=== PATIENT | female | born 1940 | race Caucasian/White ===

== ENCOUNTER → 2016-08-25 | Outpatient (CLI) | payer MEDICARE, BC ==
[2016-08-25 18:46] LABS: Basophils % (A) 0 %; CH 29.5; CHCM 32.5; Eosinophils # (A) 0.3 k/uL (0-0.7); Eosinophils % (A) 4 %; HCT 42.3 % (34.0-46.0); HDW 2.68; HGB 14.4 gm/dL (11.4-16.0); Luc # (Auto) 0.15; Luc % (Auto) 2; Lymphocytes # (A) 1.6 k/uL (1.0-4.8); Lymphocytes % (A) 21 %; MCV 91.3 fL (80.0-100.0); Mean Platelet Volume 10.8; Monocytes # (A) 0.5 k/uL (0-1.0); Monocytes % (A) 6 %; Neutrophils # (A) 5.2 k/uL (1.3-7.7); Neutrophils % (A) 67 %; RBC 4.64 m/uL (3.80-5.40); RDW 13.2 % (11.5-15.5); WBC 7.7 k/uL (3.8-10.6); WBC (Perox) 7.88
[2016-08-25 18:55] LABS: ALT 37 U/L (9-52); AST 20 U/L (14-36); Alkaline Phosphatase 72 U/L (38-126); Anion Gap 13 mmol/L; Blood Urea Nitrogen 21 mg/dL (7-17); Calcium 9.8 mg/dL (8.4-10.2); Carbon Dioxide 23 mmol/L (22-30); Chloride 109 mmol/L (98-107); Cholesterol 140 mg/dL (<200); Glucose 115 mg/dL (74-99); HDL Cholesterol 45 mg/dL (40-60); Non-African American GFR(MDRD) >60 (>60 ml/min/1.73 sqM); Sodium 145 mmol/L (137-145); Total Bilirubin 0.5 mg/dL (0.2-1.3); Total Protein 6.6 g/dL (6.3-8.2); Triglycerides 118 mg/dL (<150)
[2016-08-25 21:29] LABS: Hemoglobin A1C 6.8 % (4.2-6.1)
[2016-08-26 01:57] LABS: Urine Creatinine 96.3 mg/dL
== END ==
LOC: MMGSC 10:02
PROVIDERS: ATTEND Family Medicine
DX: E11.9 Type 2 diabetes mellitus without complications (principal); E78.5 Hyperlipidemia, unspecified; I10 Essential (primary) hypertension
CPT/HCPCS: 36415; 80053; 80061; 82043; 82570; 83036; 84439; 84443; 85025

== ENCOUNTER → 2016-11-13 | Outpatient (CLI) | payer MEDICARE, BC ==
--- NOTE | 2016-11-16 09:57 | MM ---
Reason for exam: screening (asymptomatic). Last mammogram was performed 1 year ago. History: Patient is postmenopausal. Took estrogen for 1 year beginning at age 38. Physical Findings: A clinical breast exam by your physician is recommended on an annual basis and results should be correlated with mammographic findings. MG 3D Screening Mammo W/Cad Bilateral CC and MLO view(s) were taken. Prior study comparison: November 04, 2015, bilateral MG screening mammo w CAD. November 02, 2014, bilateral MG screening mammo w CAD. There are scattered fibroglandular densities. No significant changes when compared with prior studies. ASSESSMENT: Benign, BI-RAD 2 RECOMMENDATION: Routine screening mammogram of both breasts in 1 year.
== END | disposition home or self-care (01) ==
LOC: RADMAMWWP 07:52
PROVIDERS: ATTEND Family Medicine
DX: Z12.31 Encounter for screening mammogram for malignant neoplasm of breast (principal)
CPT/HCPCS: 77063; G0202

== ENCOUNTER → 2017-11-12 | Outpatient (CLI) | payer MEDICARE, BC ==
--- NOTE | 2017-11-14 19:55 | MR ---
EXAMINATION TYPE: MR iac wo/w con DATE OF EXAM: 11/12/2017 COMPARISON: 07/09/2009 HISTORY: Unspecified hearing loss, unspecified ear TECHNIQUE: Multiplanar, multisequence images of the brain and brainstem is performed without and with IV contras t, utilizing 7 mL intravenous Gadavist . FINDINGS: Diffusion weighted images demonstrate no evidence of a recent infarct or other diffusion ab normality. There is abnormal signal seen throughout the subdural space bilaterally including along the cerebral convexities and tentorium. Measuring a maximal thickness of 3 to 4 mm. Findings are felt to be suspic ious for acute subdural hematoma. No midline shift or mass effect. Findings were immediately notified to Dr. Feliciano by telephone. There appears to be a stable hydrocephalus with artifact along the right cerebral convexity compatibl e with shunt catheter. Periventricular confluent and numerous areas of abnormal signal the white matter are nonspecific but most suggestive of remote ischemia. There is no evidence of acute ischemia. There is enhancement bryon g the dura which is felt to be secondary to the small bilateral subdural hematoma. Some of which exte nds along the 7th and 8th cranial nerve and may result in irritation of the nerve complex. No evidence of acoustic schwannoma or cerebellopontine angle mass. There is a partially empty sella t urcica. IMPRESSION: 1. Findings are suspicious for diffuse bilateral small subdural hematomas with no midline shift. Find ings immediately notified to the referring physician by telephone. Stat CT of the head is recommended . 2. No midline shift or mass effect. Stable hydrocephalus with suspected shunt catheter. The tip of th e catheter is not well seen which also could be evaluated with CT scan. 3. Nonspecific white matter changes most typical remote microvascular ischemia.
== END | disposition home or self-care (01) ==
LOC: RADMRIMAIN 16:53
PROVIDERS: ATTEND Otolaryngology
DX: G91.9 Hydrocephalus, unspecified (principal); I67.82 Cerebral ischemia; H91.91 Unspecified hearing loss, right ear
CPT/HCPCS: 70553; A9581

== ENCOUNTER 2017-11-14 22:36 | Emergency (ER) | payer MEDICARE, BC ==
[2017-11-14] MEDS ORDERED: SODIUM CHLORIDE 0.9% 1,000 ML IV STA (22:47)
--- NOTE | 2017-11-14 23:20 | CT ---
EXAMINATION TYPE: CT brain ophelia rodrigez con DATE OF EXAM: 11/14/2017 COMPARISON: None HISTORY: fall CT DLP: 1278.60 mGycm Automated exposure control for dose reduction was used. TECHNIQUE: CT scan of the head and cervical spine are performed without contrast. FINDINGS: There is right posterior occipital ventricular shunt catheter with the tip in the right l ateral ventricle. There is no significant hydrocephalus. There is no mass effect nor midline shift. T here is subtle intermediate density in the subdural space over the cerebral convexities consistent wi th mild subdural hygromas and old subdural hemorrhage. I see no sign of acute hemorrhage. The calvari um appears intact. There is cervical mild kyphotic curvature. There is degenerative disc space narrowing at C6-7 with sp urring of the endplates. Posterior elements are intact. I see no cervical spine fracture. The skull b ase appears intact. IMPRESSION: Intermediate density fluid around the cerebral hemispheres consistent with old subdural hemorrhage. T his appears similar to MR scan of 11/12/2017. No evidence of any new hemorrhage. No hydrocephalus. Spondylotic changes in the lower cervical spine and mild kyphotic curvature could relate to ligamento us injury uncertain age. Comparison with an old exam would be helpful. No fracture seen.
[2017-11-14 23:25] LABS: Basophils % (A) 1 %; Eosinophils # (A) 0.3 k/uL (0-0.7); Eosinophils % (A) 4 %; HCT 37.1 % (34.0-46.0); HGB 12.9 gm/dL (11.4-16.0); Lymphocytes # (A) 2.5 k/uL (1.0-4.8); Lymphocytes % (A) 32 %; MCHC 34.8 g/dL (31.0-37.0); MCV 86.3 fL (80.0-100.0); Mean Platelet Volume 8.2; Monocytes # (A) 0.4 k/uL (0-1.0); Monocytes % (A) 5 %; Neutrophils # (A) 4.3 k/uL (1.3-7.7); Neutrophils % (A) 55 %; Platelet Count 234 k/uL (150-450); RDW 13.1 % (11.5-15.5); WBC 7.7 k/uL (3.8-10.6)
--- NOTE | 2017-11-14 23:25 | ED ---
General Adult HPI - General Chief complaint: Head Injury Stated complaint: ear pain Time Seen by Provider: 11/14/17 22:46 Source: patient, RN notes reviewed, old records reviewed Mode of arrival: ambulatory Limitations: no limitations - History of Present Illness Initial comments: This is a 77-year-old female the ER for evaluation of weakness possible fall. Patient is presenting today for evaluation of lower extremity weakness also complaining of occasional headaches. A she was seen by ENT to outpatient MRI of her ER for evaluation, patient found incidental subdural hemorrhage with acute on chronic bleeding. Patient sent to ER today for evaluation of same. This MRI of her was done 2 days ago on Wednesday and she states today she woke up with some weakness in her lower extremities. She also complains of occasional mild headache MD Complaint: Weakness -: days(s) Location: lower extremity Radiation: non-radiation Severity scale (1-10): 3 Quality: aching Consistency: constant Improves with: none Worsens with: none Associated Symptoms: denies other symptoms Treatments Prior to Arrival: none - Related Data Allergies Allergy/AdvReac Type Severity Reaction Status Date / Time iodine Allergy Rash/Hives Verified 11/14/17 22:43 Sulfa (Sulfonamide Allergy Rash/Hives Verified 11/14/17 22:43 Antibiotics) Review of Systems ROS Statement: Those systems with pertinent positive or pertinent negative responses have been documented in the HPI. ROS Other: All systems not noted in ROS Statement are negative. Past Medical History Past Medical History: CVA/TIA, Diabetes Mellitus, Hyperlipidemia, Hypertension History of Any Multi-Drug Resistant Organisms: None Reported Past Surgical History: Appendectomy, Heart Catheterization, Hernia Repair, Hysterectomy Additional Past Surgical History / Comment(s): 2 shunts in the brain Past Psychological History: No Psychological Hx Reported Smoking Status: Never smoker Past Alcohol Use History: None Reported Past Drug Use History: None Reported General Exam Limitations: no limitations General appearance: alert, in no apparent distress Head exam: Present: atraumatic, normocephalic, normal inspection Eye exam: Present: normal appearance, PERRL, EOMI. Absent: scleral icterus, conjunctival injection, periorbital swelling ENT exam: Present: normal exam, mucous membranes moist Neck exam: Present: normal inspection. Absent: tenderness, meningismus, lymphadenopathy Respiratory exam: Present: normal lung sounds bilaterally. Absent: respiratory distress, wheezes, rales, rhonchi, stridor Cardiovascular Exam: Present: regular rate, normal rhythm, normal heart sounds. Absent: systolic murmur, diastolic murmur, rubs, gallop, clicks GI/Abdominal exam: Present: soft, normal bowel sounds. Absent: distended, tenderness, guarding, rebound, rigid Extremities exam: Present: normal inspection, full ROM, normal capillary refill. Absent: tenderness, pedal edema, joint swelling, calf tenderness Back exam: Present: normal inspection Neurological exam: Present: alert, oriented X3, CN II-XII intact Psychiatric exam: Present: normal affect, normal mood Skin exam: Present: warm, dry, intact, normal color. Absent: rash Course Vital Signs 11/14/17 22:37 Temperature 98.1 F Pulse Rate 70 Respiratory 18 Rate Blood Pressure 162/80 O2 Sat by Pulse 100 Oximetry - Reevaluation(s) Reevaluation #1: 11/15/17 00:07 Patient's medical record and MRI for outpatient is reviewed, we did speak with outpatient MRI radiologist who is at concern for bleeding as well as patient's ENT who ordered the outpatient MRI EKG Findings - EKG Comments: EKG Findings:: Vital male EKG shows normal sinus rhythm rate of 64, GA 154, QRS 86, QTc 427 Medical Decision Making - Medical Decision Making 77 female the ER for evaluation, patient does say for evaluation regarding dizziness and leg weakness. He was found have an outpatient MRI positive for acute on chronic subdural hematoma and hemorrhage with possible spots of active bleeding. Patient be transferred to [facility] for evaluation by neurosurgery - Lab Data Result diagrams: 11/14/17 23:15 11/14/17 23:15 Lab Results 11/14/17 11/14/17 11/14/17 Range/Units 23:12 23:15 23:15 WBC 7.7 (3.8-10.6) k/uL RBC 4.30 (3.80-5.40) m/uL Hgb 12.9 (11.4-16.0) gm/dL Hct 37.1 (34.0-46.0) % MCV 86.3 (80.0-100.0) fL MCH 30.0 (25.0-35.0) pg MCHC 34.8 (31.0-37.0) g/dL RDW 13.1 (11.5-15.5) % Plt Count 234 (150-450) k/uL Neutrophils % 55 % Lymphocytes % 32 % Monocytes % 5 % Eosinophils % 4 % Basophils % 1 % Neutrophils # 4.3 (1.3-7.7) k/uL Lymphocytes # 2.5 (1.0-4.8) k/uL Monocytes # 0.4 (0-1.0) k/uL Eosinophils # 0.3 (0-0.7) k/uL Basophils # 0.0 (0-0.2) k/uL PT (9.0-12.0) sec INR (<1.2) APTT (22.0-30.0) sec Sodium (137-145) mmol/L Potassium (3.5-5.1) mmol/L Chloride (98-107) mmol/L Carbon Dioxide (22-30) mmol/L Anion Gap mmol/L BUN (7-17) mg/dL Creatinine (0.52-1.04) mg/dL Est GFR (CKD-EPI)AfAm (>60 ml/min/1.73 sqM) Est GFR (CKD-EPI)NonAf (>60 ml/min/1.73 sqM) Glucose (74-99) mg/dL Calcium (8.4-10.2) mg/dL Phosphorus (2.5-4.5) mg/dL Magnesium (1.6-2.3) mg/dL Total Bilirubin (0.2-1.3) mg/dL AST (14-36) U/L ALT (9-52) U/L Alkaline Phosphatase (38-126) U/L Total Creatine Kinase 51 (30-135) U/L Total Protein (6.3-8.2) g/dL Albumin (3.5-5.0) g/dL Urine Color Yellow Urine Appearance Clear (Clear) Urine pH 6.0 (5.0-8.0) Ur Specific Dunlevy 1.016 (1.001-1.035) Urine Protein Negative (Negative) Urine Glucose (UA) Negative (Negative) Urine Ketones Negative (Negative) Urine Blood Negative (Negative) Urine Nitrite Negative (Negative) Urine Bilirubin Negative (Negative) Urine Urobilinogen <2.0 (<2.0) mg/dL Ur Leukocyte Esterase Large H (Negative) Urine RBC 4 (0-5) /hpf Urine WBC 26 H (0-5) /hpf Ur Squamous Epith Cells 1 (0-4) /hpf Urine Bacteria Rare H (None) /hpf Urine Mucus Rare H (None) /hpf 11/14/17 11/14/17 Range/Units 23:15 23:15 WBC (3.8-10.6) k/uL RBC (3.80-5.40) m/uL Hgb (11.4-16.0) gm/dL Hct (34.0-46.0) % MCV (80.0-100.0) fL MCH (25.0-35.0) pg MCHC (31.0-37.0) g/dL RDW (11.5-15.5) % Plt Count (150-450) k/uL Neutrophils % % Lymphocytes % % Monocytes % % Eosinophils % % Basophils % % Neutrophils # (1.3-7.7) k/uL Lymphocytes # (1.0-4.8) k/uL Monocytes # (0-1.0) k/uL Eosinophils # (0-0.7) k/uL Basophils # (0-0.2) k/uL PT 9.5 (9.0-12.0) sec INR 1.0 (<1.2) APTT 20.6 L (22.0-30.0) sec Sodium 141 (137-145) mmol/L Potassium 3.7 (3.5-5.1) mmol/L Chloride 108 H (98-107) mmol/L Carbon Dioxide 26 (22-30) mmol/L Anion Gap 7 mmol/L BUN 18 H (7-17) mg/dL Creatinine 0.73 (0.52-1.04) mg/dL Est GFR (CKD-EPI)AfAm >90 (>60 ml/min/1.73 sqM) Est GFR (CKD-EPI)NonAf 79 (>60 ml/min/1.73 sqM) Glucose 112 H (74-99) mg/dL Calcium 9.2 (8.4-10.2) mg/dL Phosphorus 3.7 (2.5-4.5) mg/dL Magnesium 1.5 L (1.6-2.3) mg/dL Total Bilirubin 0.3 (0.2-1.3) mg/dL AST 16 (14-36) U/L ALT 23 (9-52) U/L Alkaline Phosphatase 53 (38-126) U/L Total Creatine Kinase (30-135) U/L Total Protein 6.0 L (6.3-8.2) g/dL Albumin 3.6 (3.5-5.0) g/dL Urine Color Urine Appearance (Clear) Urine pH (5.0-8.0) Ur Specific Dunlevy (1.001-1.035) Urine Protein (Negative) Urine Glucose (UA) (Negative) Urine Ketones (Negative) Urine Blood (Negative) Urine Nitrite (Negative) Urine Bilirubin (Negative) Urine Urobilinogen (<2.0) mg/dL Ur Leukocyte Esterase (Negative) Urine RBC (0-5) /hpf Urine WBC (0-5) /hpf Ur Squamous Epith Cells (0-4) /hpf Urine Bacteria (None) /hpf Urine Mucus (None) /hpf - Radiology Data Radiology results: report reviewed (CT brain shows and C-spine shows acute on subacute subdural hematoma), image reviewed Disposition Clinical Impression: Closed head injury, Subdural hematoma Disposition: OTHER INSTITUTION NOT DEFINED Condition: Good Is patient prescribed a controlled substance at d/c from ED?: No Referrals: Rosalina Mcclellan MD [Primary Care Provider] - 1-2 days - Out of Hospital Transfer - Req. Specs Out of Hospital Transfer - Requested Specifics: Other Emergency Center ([facility])
[2017-11-14 23:38] LABS: Appearance,Urine Clear (Clear); Bacteria,Urine Rare /hpf; Bilirubin,Urine Negative (Negative); Blood,Urine Negative (Negative); Color,Urine Yellow; Glucose,Urine (UA) Negative (Negative); Ketones,Urine Negative (Negative); Leukocyte Esterase,Urine Large (Negative); Mucus,Urine Rare /hpf; Nitrite,Urine Negative (Negative); Protein,Urine Negative (Negative); RBC,Urine 4 /hpf (0-5); Specific Gravity,Urine 1.016 (1.001-1.035); Squamous Epithelial Cell,Urine 1 /hpf (0-4); Urobilinogen,Urine <2.0 mg/dL (<2.0); WBC,Urine 26 /hpf (0-5)
[2017-11-14 23:41] LABS: ALT 23 U/L (9-52); AST 16 U/L (14-36); Albumin 3.6 g/dL (3.5-5.0); Alkaline Phosphatase 53 U/L (38-126); Anion Gap 7 mmol/L; Blood Urea Nitrogen 18 mg/dL (7-17); Calcium 9.2 mg/dL (8.4-10.2); Carbon Dioxide 26 mmol/L (22-30); Chloride 108 mmol/L (98-107); Glucose 112 mg/dL (74-99); Magnesium 1.5 mg/dL (1.6-2.3); Phosphorus 3.7 mg/dL (2.5-4.5); Potassium 3.7 mmol/L (3.5-5.1); Sodium 141 mmol/L (137-145); Total Bilirubin 0.3 mg/dL (0.2-1.3)
[2017-11-14 23:44] LABS: Prothrombin Time 9.5 sec (9.0-12.0)
[2017-11-14] MEDS ORDERED: cefTRIAXone 2,000 MG in SODIUM CHLORIDE 0.9% 100 ML IVPB STA (23:44)
[2017-11-14 23:47] LABS: Partial Thromboplastin Time 20.6 sec (22.0-30.0)
[2017-11-14 23:54] LABS: Creatine Kinase 51 U/L (30-135)
[2017-11-15 00:07] LABS: Creatine Kinase MB 1.1 ng/mL (0.0-2.4); Troponin I <0.012 ng/mL (0.000-0.034)
[2017-11-15 01:02] VITALS: BP 134/67; PULSE 87; RESP 20; TEMP 97.6
== END 2017-11-15 01:03 | disposition short-term general hospital (02) ==
LOC: EC 22:36
DX: S06.5X9A Traumatic subdural hemorrhage with loss of consciousness of unspecified duration, initial encounter (principal); R29.898 Other symptoms and signs involving the musculoskeletal system; Z88.2 Allergy status to sulfonamides; Z91.048 Other nonmedicinal substance allergy status; Z86.73 Personal history of transient ischemic attack (TIA), and cerebral infarction without residual deficits; Z98.2 Presence of cerebrospinal fluid drainage device; W19.XXXA Unspecified fall, initial encounter
CPT/HCPCS: 99285; 96365; 96361; 36415 ×2; 93005; 80053; 82550; 82553; 83735; 84100; 84484; 85025; 85610; 85730; 81001; 87040; 87086; 72125; 70450; J0696

== ENCOUNTER 2017-11-16 12:50 | Emergency (ER) | payer MEDICARE, BC ==
[2017-11-16 12:57] VITALS: RESP 18
[2017-11-16] MEDS ORDERED: SODIUM CHLORIDE 0.9% 1,000 ML IV STA (13:11)
[2017-11-16] MEDS ORDERED: MECLIZINE 12.5 MG TAB PO STA (13:11)
[2017-11-16 13:16] LABS: Glucose,Whole Blood 80 mg/dL (75-99)
[2017-11-16 13:30] LABS: Basophils # (A) 0.1 k/uL (0-0.2); Basophils % (A) 1 %; Eosinophils # (A) 0.2 k/uL (0-0.7); Eosinophils % (A) 3 %; HCT 41.1 % (34.0-46.0); HGB 13.6 gm/dL (11.4-16.0); Lymphocytes # (A) 2.8 k/uL (1.0-4.8); Lymphocytes % (A) 33 %; MCHC 33.1 g/dL (31.0-37.0); MCV 87.5 fL (80.0-100.0); Mean Platelet Volume 8.1; Monocytes # (A) 0.3 k/uL (0-1.0); Monocytes % (A) 4 %; Neutrophils % (A) 58 %; Platelet Count 261 k/uL (150-450); RBC 4.69 m/uL (3.80-5.40); RDW 13.1 % (11.5-15.5); WBC 8.6 k/uL (3.8-10.6)
--- NOTE | 2017-11-16 13:41 | ED ---
Neuro HPI - General Chief Complaint: Neuro Symptoms/Deficit Stated Complaint: vomiting,weakness Time Seen by Provider: 11/16/17 13:00 Source: patient, RN notes reviewed Mode of arrival: ambulatory Limitations: no limitations - History of Present Illness Is the patient presenting with stroke symptoms?: No Initial Comments: This is a 76-year-old female who presents with complaints of dizziness and not feeling well. She has some nausea. This started about 1 hour prior to admission. She states she has dizziness increases with head and eye movement. She does have a history of vertigo this is worsened she's had before. Of note she was recently evaluated here and at [facility] for possible intercerebral bleed she states she believes she did not actually have a bleed. She denies any focal deficits. No fevers chills sweats - Related Data Home Medications: Home Medications Medication Instructions Recorded Confirmed Glimepiride [Amaryl] 2 mg PO AC-BRKFST 11/16/17 11/16/17 Lisinopril-Hctz 20-25 mg 1 tab PO HS 11/16/17 11/16/17 [Zestoretic 20-25] Rosuvastatin [Crestor] 10 mg PO HS 11/16/17 11/16/17 metFORMIN HCL [Glucophage] 1,000 mg PO BID 11/16/17 11/16/17 Previous Rx's Medication Instructions Recorded Meclizine [Antivert] 25 mg PO TID #20 tab 11/16/17 Allergies/Adverse Reactions: Allergies Allergy/AdvReac Type Severity Reaction Status Date / Time iodine Allergy Rash/Hives Verified 11/16/17 14:02 Sulfa (Sulfonamide Allergy Rash/Hives Verified 11/16/17 14:02 Antibiotics) Review of Systems ROS Statement: Those systems with pertinent positive or pertinent negative responses have been documented in the HPI. ROS Other: All systems not noted in ROS Statement are negative. General Exam - General Exam Comments Initial Comments: This is a well-developed well-nourished awake alert oriented 3 female Limitations: no limitations General appearance: alert, in no apparent distress Head exam: Present: atraumatic, normocephalic, normal inspection Eye exam: Present: normal appearance, PERRL, EOMI. Absent: scleral icterus, conjunctival injection, periorbital swelling ENT exam: Present: normal exam, mucous membranes moist Neck exam: Present: normal inspection, full ROM, other (No stridor JVD or bruits ). Absent: tenderness, meningismus, lymphadenopathy Respiratory exam: Present: normal lung sounds bilaterally. Absent: respiratory distress, wheezes, rales, rhonchi, stridor Cardiovascular Exam: Present: regular rate, normal rhythm, normal heart sounds. Absent: systolic murmur, diastolic murmur, rubs, gallop, clicks GI/Abdominal exam: Present: soft, normal bowel sounds. Absent: distended, tenderness, guarding, rebound, rigid Extremities exam: Present: normal inspection, full ROM, normal capillary refill. Absent: tenderness, pedal edema, joint swelling, calf tenderness Back exam: Present: normal inspection Neurological exam: Present: alert, oriented X3, CN II-XII intact Psychiatric exam: Present: normal affect, normal mood Skin exam: Present: warm, dry, intact, normal color. Absent: rash Stroke MDM - Lab Data Result diagrams: 11/16/17 13:15 11/16/17 13:15 Lab Results 11/16/17 11/16/17 11/16/17 Range/Units 13:15 13:15 13:15 WBC 8.6 (3.8-10.6) k/uL RBC 4.69 (3.80-5.40) m/uL Hgb 13.6 (11.4-16.0) gm/dL Hct 41.1 (34.0-46.0) % MCV 87.5 (80.0-100.0) fL MCH 29.0 (25.0-35.0) pg MCHC 33.1 (31.0-37.0) g/dL RDW 13.1 (11.5-15.5) % Plt Count 261 (150-450) k/uL Neutrophils % 58 % Lymphocytes % 33 % Monocytes % 4 % Eosinophils % 3 % Basophils % 1 % Neutrophils # 5.0 (1.3-7.7) k/uL Lymphocytes # 2.8 (1.0-4.8) k/uL Monocytes # 0.3 (0-1.0) k/uL Eosinophils # 0.2 (0-0.7) k/uL Basophils # 0.1 (0-0.2) k/uL PT (9.0-12.0) sec INR (<1.2) APTT (22.0-30.0) sec Sodium 142 (137-145) mmol/L Potassium 3.9 (3.5-5.1) mmol/L Chloride 106 (98-107) mmol/L Carbon Dioxide 23 (22-30) mmol/L Anion Gap 13 mmol/L BUN 17 (7-17) mg/dL Creatinine 0.74 (0.52-1.04) mg/dL Est GFR (CKD-EPI)AfAm 90 (>60 ml/min/1.73 sqM) Est GFR (CKD-EPI)NonAf 78 (>60 ml/min/1.73 sqM) Glucose 85 (74-99) mg/dL POC Glucose (mg/dL) 80 (75-99) mg/dL POC Glu Inspector [employer] ID Bushra Nolasco Calcium 9.6 (8.4-10.2) mg/dL Total Bilirubin 0.5 (0.2-1.3) mg/dL AST 20 (14-36) U/L ALT 23 (9-52) U/L Alkaline Phosphatase 66 (38-126) U/L Total Creatine Kinase (30-135) U/L CK-MB (CK-2) (0.0-2.4) ng/mL CK-MB (CK-2) Rel Index Troponin I (0.000-0.034) ng/mL Total Protein 6.8 (6.3-8.2) g/dL Albumin 4.1 (3.5-5.0) g/dL 11/16/17 11/16/17 Range/Units 13:15 13:15 WBC (3.8-10.6) k/uL RBC (3.80-5.40) m/uL Hgb (11.4-16.0) gm/dL Hct (34.0-46.0) % MCV (80.0-100.0) fL MCH (25.0-35.0) pg MCHC (31.0-37.0) g/dL RDW (11.5-15.5) % Plt Count (150-450) k/uL Neutrophils % % Lymphocytes % % Monocytes % % Eosinophils % % Basophils % % Neutrophils # (1.3-7.7) k/uL Lymphocytes # (1.0-4.8) k/uL Monocytes # (0-1.0) k/uL Eosinophils # (0-0.7) k/uL Basophils # (0-0.2) k/uL PT 9.4 (9.0-12.0) sec INR 0.9 (<1.2) APTT 20.2 L (22.0-30.0) sec Sodium (137-145) mmol/L Potassium (3.5-5.1) mmol/L Chloride (98-107) mmol/L Carbon Dioxide (22-30) mmol/L Anion Gap mmol/L BUN (7-17) mg/dL Creatinine (0.52-1.04) mg/dL Est GFR (CKD-EPI)AfAm (>60 ml/min/1.73 sqM) Est GFR (CKD-EPI)NonAf (>60 ml/min/1.73 sqM) Glucose (74-99) mg/dL POC Glucose (mg/dL) (75-99) mg/dL POC Glu Inspector Packer [employer] Container ID Calcium (8.4-10.2) mg/dL Total Bilirubin (0.2-1.3) mg/dL AST (14-36) U/L ALT (9-52) U/L Alkaline Phosphatase (38-126) U/L Total Creatine Kinase 56 (30-135) U/L CK-MB (CK-2) 1.1 (0.0-2.4) ng/mL CK-MB (CK-2) Rel Index 2.0 Troponin I <0.012 (0.000-0.034) ng/mL Total Protein (6.3-8.2) g/dL Albumin (3.5-5.0) g/dL - NIH Stroke Scale 1a. Level of Consciousness: (0) alert 1b. LOC Questions: (0) answers correctly 1c. LOC Commands: (0) performs tasks correctly 2. Best Gaze: (0) normal 3. Visual: (0) no visual loss 4. Facial Palsy: (0) normal symmetrical movement 5a. Motor Arm Left: (0) no drift 5b. Motor Arm Right: (0) no drift 6a. Motor Leg Left: (0) no drift 6b. Motor Leg Right: (0) no drift 7. Limb Ataxia: (0) absent 8. Sensory: (0) normal 9. Best Language: (0) no aphasia 10. Dysarthria: (0) normal 11. Extinction/Inattention: (0) no abnormality - Medical Decision Making I did review the imaging and discussed the findings with radiologist. No acute findings. Patient did get resolution of her symptoms for blood pressure is normalized she does have some intermittent weakness of her lower extremities this may be due to the increase her metformin she is advised to follow-up with regarding this. She has been on Antivert a past she does not have a prescription for at this time she'll get one. - EKG Data -: EKG Interpreted by Me EKG shows normal: sinus rhythm (Initial EKG shows sinus rhythm with some artifact rate was 76. Interval 128 QRS duration 86 QT since QTC 42/452) Past Medical History Past Medical History: CVA/TIA, Diabetes Mellitus, Hyperlipidemia, Hypertension History of Any Multi-Drug Resistant Organisms: None Reported Past Surgical History: Appendectomy, Heart Catheterization, Hernia Repair, Hysterectomy Additional Past Surgical History / Comment(s): 2 shunts in the brain Past Psychological History: No Psychological Hx Reported Smoking Status: Never smoker Past Alcohol Use History: None Reported Past Drug Use History: None Reported Course Vital Signs 11/16/17 11/16/17 11/16/17 12:51 12:57 13:00 Temperature 98 F Pulse Rate 72 66 78 Respiratory 18 18 18 Rate Blood Pressure 190/81 208/87 220/101 O2 Sat by Pulse 99 66 L 98 Oximetry 11/16/17 11/16/17 13:12 13:45 Temperature Pulse Rate 68 72 Respiratory 18 18 Rate Blood Pressure 189/94 178/81 O2 Sat by Pulse 98 99 Oximetry - Reevaluation(s) Reevaluation #1: 11/16/17 14:31 Repeat EKG shows normal sinus rhythm a 68. Interval 156 QRS duration 82 QT since QTC 460/[address]-T wave changes Disposition Clinical Impression: Benign positional vertigo, Hypertension Disposition: HOME SELF-CARE Condition: Good Instructions: Benign Paroxysmal Positional Vertigo (ED) Prescriptions: Meclizine [Antivert] 25 mg PO TID #20 tab Is patient prescribed a controlled substance at d/c from ED?: No Referrals: Rosalina Mcclellan MD [Primary Care Provider] - 1-2 days
[2017-11-16 13:47] LABS: INR 0.9 (<1.2); Prothrombin Time 9.4 sec (9.0-12.0)
--- NOTE | 2017-11-16 13:55 | CT ---
EXAMINATION TYPE: CT brain wo con for TPA DATE OF EXAM: 11/16/2017 COMPARISON: MRI 11/12/2017, CT 11/14/2017 HISTORY: Weakness and vomiting. CT DLP: 988.3 mGycm Automated exposure control for dose reduction was used. FINDINGS: There is abnormal attenuation within the CSF space bilaterally which corresponds the recent MRI abnor mality. There are areas of intermediate density suspicious for subacute bilateral subdural hematoma. Meningitis would be in the differential diagnosis. There is low-attenuation in the white matter which is nonspecific but stable and most typical remote microvascular ischemia. There is a TOE STAPLER shunt catheter. There is enlargement of the ventricular system compatible with hydrocep halus which is similar to the prior exam of 11/14/2017. Atherosclerotic change of the vasculature noted. IMPRESSION: 1. There again appears to be a thin rim (approximately 3 to 4 mm) of subdural collection along both c erebral convexities and cerebellar tentorium which corresponds to the MRI abnormality. This appears t o be of intermediate to low density suggestive of a probable subacute subdural hematoma. Hyperdensity along the right parietal lobe appears to be secondary to artifact related to the TOE STAPLER shunt catheter r ather than area of acute hemorrhage. Correlate clinically. No midline shift. Meningitis or metastatic disease would also be in the differential diagnosis given the enhancement pattern by MRI. Correlate clinically. 2. Stable TOE STAPLER shunt catheter with the evidence of persistent hydrocephalus unchanged from the recent C T scan. 3. Degenerative and nonspecific white matter changes most typical remote microvascular ischemia.
[2017-11-16 14:01] LABS: Partial Thromboplastin Time 20.2 sec (22.0-30.0)
[2017-11-16 14:02] LABS: Albumin 4.1 g/dL (3.5-5.0); Calcium 9.6 mg/dL (8.4-10.2); Creatine Kinase 56 U/L (30-135); Potassium 3.9 mmol/L (3.5-5.1); Total Bilirubin 0.5 mg/dL (0.2-1.3); Total Protein 6.8 g/dL (6.3-8.2)
[2017-11-16 14:14] LABS: Creatine Kinase MB 1.1 ng/mL (0.0-2.4); Troponin I <0.012 ng/mL (0.000-0.034)
--- NOTE | 2017-11-16 15:32 | XR ---
EXAMINATION TYPE: XR chest 2V DATE OF EXAM: 11/16/2017 COMPARISON: Prior chest x-ray unavailable HISTORY: Altered mental status TECHNIQUE: Frontal and lateral views of the chest are obtained. FINDINGS: There is no pleural effusion or pneumothorax seen. The cardiac silhouette size is within normal limits. Patchy density likely represent subsegmental atelectasis at the costophrenic angles. There is eventration of the right hemidiaphragm. Technique is apical lordotic. The osseous structures are intact. Suspect ventricular peritoneal shunt tubing extending along the right neck the abdomen, correlate. IMPRESSION: Probable basilar atelectasis, follow-up as indicated.
[2017-11-16 16:07] VITALS: BP 147/68; PULSE 66; TEMP 97.5
== END 2017-11-16 16:07 | disposition home or self-care (01) ==
LOC: EC 12:50
DX: H81.10 Benign paroxysmal vertigo, unspecified ear (principal); R29.898 Other symptoms and signs involving the musculoskeletal system; I10 Essential (primary) hypertension; E11.9 Type 2 diabetes mellitus without complications; Z79.84 Long term (current) use of oral hypoglycemic drugs; Z79.899 Other long term (current) drug therapy; Z88.2 Allergy status to sulfonamides; Z91.048 Other nonmedicinal substance allergy status; Z86.73 Personal history of transient ischemic attack (TIA), and cerebral infarction without residual deficits; Z95.818 Presence of other cardiac implants and grafts; Z98.2 Presence of cerebrospinal fluid drainage device
CPT/HCPCS: 36415; 70450; 71046; 80053; 82550; 82553; 84484; 85025; 85610; 85730; 93005; 96360; 96361; 99284

== ENCOUNTER 2017-11-22 15:16 | Emergency (ER) | payer MEDICARE, BC ==
[2017-11-22 16:15] VITALS: RESP 20
[2017-11-22] MEDS ORDERED: SODIUM CHLORIDE 0.9% 1,000 ML IV STA (17:16)
--- NOTE | 2017-11-22 17:19 | ED ---
General Adult HPI - General Chief complaint: Dizziness Stated complaint: dizziness, nausea, vomiting Time Seen by Provider: 11/22/17 17:07 Source: patient, RN notes reviewed, old records reviewed Mode of arrival: wheelchair Limitations: no limitations - History of Present Illness Initial comments: Patient 77-year-old female presents emergency room today with a chief complaint of dizziness. She admits to a history of vertigo. She states this is similar to vertigo that she's had in the past. She states it is better though was this morning. She did take her meclizine. Patient admits that she was seen in the hospital week ago diagnosed with a subdural hematoma. She states she was transferred to [facility]. She states the neurologist told her that there was no blood and she was discharged. Patient states there is no headache. She states that she does feel somewhat generalized weakness to her legs. She states it feels like her knees give out. She denies any other complaints. Patient denies any recent fever, chills, shortness of breath, chest pain, back pain, abdominal pain, nausea or vomiting, numbness or tingling, headaches or visual changes, or any other complaints. - Related Data Home Medications Medication Instructions Recorded Confirmed Glimepiride [Amaryl] 2 mg PO AC-SUPPER 11/16/17 11/22/17 Lisinopril-Hctz 20-25 mg 1 tab PO HS 11/16/17 11/22/17 [Zestoretic 20-25] Rosuvastatin [Crestor] 10 mg PO HS 11/16/17 11/22/17 metFORMIN HCL [Glucophage] 1,000 mg PO DAILY 11/16/17 11/22/17 Aspirin [Adult Low Dose Aspirin EC] 81 mg PO DAILY 11/22/17 11/22/17 [place]-3 Fatty Acids/Fish Oil [Fish 1 cap PO DAILY 11/22/17 11/22/17 Oil 1,000 mg Softgel] metFORMIN HCL [Glucophage] 500 mg PO HS 11/22/17 11/22/17 Allergies Allergy/AdvReac Type Severity Reaction Status Date / Time iodine Allergy Rash/Hives Verified 11/22/17 18:42 Sulfa (Sulfonamide Allergy Rash/Hives Verified 11/22/17 18:42 Antibiotics) Review of Systems ROS Statement: Those systems with pertinent positive or pertinent negative responses have been documented in the HPI. ROS Other: All systems not noted in ROS Statement are negative. 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 Eye: Pupils are equal, round and reactive to light. Extra-ocular movements are intact. No nystagmus. There is normal conjunctiva bilaterally. No signs of icterus. Ears, nose, mouth and throat: There are moist mucous membranes and no oral lesions. Neck: The neck is supple, there is no tenderness or JVD. Cardiovascular: There is a regular rate and rhythm. No murmur, rub or gallop is appreciated. Respiratory: Lungs are clear to auscultation, respirations are non-labored, breath sounds are equal. No wheezes, stridor, rales, or rhonchi. Gastrointestinal: Soft, non-distended, non-tender abdomen without masses or organomegaly noted. There is no rebound or guarding present. No CVA tenderness. Bowel sounds are unremarkable. Musculoskeletal: Normal ROM, no tenderness. Sensation intact. Strength 5/5. Pulses equal bilaterally 2+. Neurological: A&O x 3. CN II-XII intact, There are no obvious motor or sensory deficits. Coordination appears grossly intact. Speech is normal. Skin: Skin is warm and dry and no rashes or lesions are noted. Psychiatric: Cooperative, appropriate mood & affect, normal judgment. Limitations: no limitations Course Vital Signs 11/22/17 16:12 Temperature 98.0 F Pulse Rate 68 Respiratory 20 Rate Blood Pressure 137/71 O2 Sat by Pulse 98 Oximetry EKG Findings - EKG Comments: EKG Findings:: EKG performed at 1750: Shows normal sinus rhythm at 62 bpm. WV interval 142. QRS 86 QTc/QTc 440/446. Medical Decision Making - Medical Decision Making Patient's CT of the head is negative for any acute abnormality. Results were discussed with the patient. Patient's labs reviewed unremarkable. Case discussed in detail with attending physician Dr. Castillo. At this time patient is doing well. Has been ambulatory here in the emergency room will be discharged home advised continue meclizine. Advised follow-up with her family physician also her neurologist. She also has an appointment with ENT this coming Wednesday. Advised to return to the emergency room if any symptoms increase worsen or for any other concerns. - Lab Data Result diagrams: 11/22/17 18:00 11/22/17 18:00 Lab Results 11/22/17 11/22/17 11/22/17 Range/Units 17:48 18:00 18:00 WBC 9.2 (3.8-10.6) k/uL RBC 4.49 (3.80-5.40) m/uL Hgb 13.4 (11.4-16.0) gm/dL Hct 38.7 (34.0-46.0) % MCV 86.1 (80.0-100.0) fL MCH 29.8 (25.0-35.0) pg MCHC 34.6 (31.0-37.0) g/dL RDW 12.6 (11.5-15.5) % Plt Count 241 (150-450) k/uL Neutrophils % 74 % Lymphocytes % 18 % Monocytes % 3 % Eosinophils % 2 % Basophils % 1 % Neutrophils # 6.8 (1.3-7.7) k/uL Lymphocytes # 1.7 (1.0-4.8) k/uL Monocytes # 0.3 (0-1.0) k/uL Eosinophils # 0.2 (0-0.7) k/uL Basophils # 0.1 (0-0.2) k/uL Sodium (137-145) mmol/L Potassium (3.5-5.1) mmol/L Chloride (98-107) mmol/L Carbon Dioxide (22-30) mmol/L Anion Gap mmol/L BUN (7-17) mg/dL Creatinine (0.52-1.04) mg/dL Est GFR (CKD-EPI)AfAm (>60 ml/min/1.73 sqM) Est GFR (CKD-EPI)NonAf (>60 ml/min/1.73 sqM) Glucose (74-99) mg/dL Calcium (8.4-10.2) mg/dL Total Bilirubin (0.2-1.3) mg/dL AST (14-36) U/L ALT (9-52) U/L Alkaline Phosphatase (38-126) U/L Total Creatine Kinase 47 (30-135) U/L CK-MB (CK-2) 0.7 (0.0-2.4) ng/mL CK-MB (CK-2) Rel Index 1.5 Troponin I <0.012 (0.000-0.034) ng/mL Total Protein (6.3-8.2) g/dL Albumin (3.5-5.0) g/dL Urine Color Yellow Urine Appearance Clear (Clear) Urine pH 6.0 (5.0-8.0) Ur Specific [place] 1.016 (1.001-1.035) Urine Protein Negative (Negative) Urine Glucose (UA) Negative (Negative) Urine Ketones Negative (Negative) Urine Blood Negative (Negative) Urine Nitrite Negative (Negative) Urine Bilirubin Negative (Negative) Urine Urobilinogen <2.0 (<2.0) mg/dL Ur Leukocyte Esterase Trace H (Negative) Urine RBC 1 (0-5) /hpf Urine WBC 2 (0-5) /hpf Ur Squamous Epith Cells <1 (0-4) /hpf Urine Mucus Rare H (None) /hpf 11/22/17 Range/Units 18:00 WBC (3.8-10.6) k/uL RBC (3.80-5.40) m/uL Hgb (11.4-16.0) gm/dL Hct (34.0-46.0) % MCV (80.0-100.0) fL MCH (25.0-35.0) pg MCHC (31.0-37.0) g/dL RDW (11.5-15.5) % Plt Count (150-450) k/uL Neutrophils % % Lymphocytes % % Monocytes % % Eosinophils % % Basophils % % Neutrophils # (1.3-7.7) k/uL Lymphocytes # (1.0-4.8) k/uL Monocytes # (0-1.0) k/uL Eosinophils # (0-0.7) k/uL Basophils # (0-0.2) k/uL Sodium 141 (137-145) mmol/L Potassium 3.8 (3.5-5.1) mmol/L Chloride 104 (98-107) mmol/L Carbon Dioxide 27 (22-30) mmol/L Anion Gap 10 mmol/L BUN 19 H (7-17) mg/dL Creatinine 0.73 (0.52-1.04) mg/dL Est GFR (CKD-EPI)AfAm >90 (>60 ml/min/1.73 sqM) Est GFR (CKD-EPI)NonAf 79 (>60 ml/min/1.73 sqM) Glucose 111 H (74-99) mg/dL Calcium 9.4 (8.4-10.2) mg/dL Total Bilirubin 0.6 (0.2-1.3) mg/dL AST 26 (14-36) U/L ALT 27 (9-52) U/L Alkaline Phosphatase 64 (38-126) U/L Total Creatine Kinase (30-135) U/L CK-MB (CK-2) (0.0-2.4) ng/mL CK-MB (CK-2) Rel Index Troponin I (0.000-0.034) ng/mL Total Protein 6.4 (6.3-8.2) g/dL Albumin 3.8 (3.5-5.0) g/dL Urine Color Urine Appearance (Clear) Urine pH (5.0-8.0) Ur Specific [place] (1.001-1.035) Urine Protein (Negative) Urine Glucose (UA) (Negative) Urine Ketones (Negative) Urine Blood (Negative) Urine Nitrite (Negative) Urine Bilirubin (Negative) Urine Urobilinogen (<2.0) mg/dL Ur Leukocyte Esterase (Negative) Urine RBC (0-5) /hpf Urine WBC (0-5) /hpf Ur Squamous Epith Cells (0-4) /hpf Urine Mucus (None) /hpf Disposition Clinical Impression: Vertigo Disposition: HOME SELF-CARE Condition: Good Instructions: Dizziness (ED) Additional Instructions: Please use medication as discussed. Please follow-up with ENT/neurologist/ family doctor in the next 2 days of symptoms have not improved. Please return to emergency room if the symptoms increase or worsen or for any other concerns. Is patient prescribed a controlled substance at d/c from ED?: No Referrals: Rosalina Mcclellan MD [Primary Care Provider] - 1-2 days Time of Disposition: 20:02
[2017-11-22 18:12] LABS: Appearance,Urine Clear (Clear); Bilirubin,Urine Negative (Negative); Blood,Urine Negative (Negative); Color,Urine Yellow; Glucose,Urine (UA) Negative (Negative); Ketones,Urine Negative (Negative); Leukocyte Esterase,Urine Trace (Negative); Mucus,Urine Rare /hpf; Nitrite,Urine Negative (Negative); Protein,Urine Negative (Negative); RBC,Urine 1 /hpf (0-5); Specific Gravity,Urine 1.016 (1.001-1.035); Squamous Epithelial Cell,Urine <1 /hpf (0-4); Urobilinogen,Urine <2.0 mg/dL (<2.0)
[2017-11-22 18:23] LABS: Basophils # (A) 0.1 k/uL (0-0.2); Basophils % (A) 1 %; Eosinophils # (A) 0.2 k/uL (0-0.7); Eosinophils % (A) 2 %; HCT 38.7 % (34.0-46.0); HGB 13.4 gm/dL (11.4-16.0); Lymphocytes # (A) 1.7 k/uL (1.0-4.8); Lymphocytes % (A) 18 %; MCH 29.8 pg (25.0-35.0); MCHC 34.6 g/dL (31.0-37.0); MCV 86.1 fL (80.0-100.0); Mean Platelet Volume 8.2; Monocytes # (A) 0.3 k/uL (0-1.0); Monocytes % (A) 3 %; Neutrophils # (A) 6.8 k/uL (1.3-7.7); Neutrophils % (A) 74 %; Platelet Count 241 k/uL (150-450); RBC 4.49 m/uL (3.80-5.40); RDW 12.6 % (11.5-15.5); WBC 9.2 k/uL (3.8-10.6)
[2017-11-22 18:26] LABS: ALT 27 U/L (9-52); AST 26 U/L (14-36); Albumin 3.8 g/dL (3.5-5.0); Alkaline Phosphatase 64 U/L (38-126); Anion Gap 10 mmol/L; Blood Urea Nitrogen 19 mg/dL (7-17); Calcium 9.4 mg/dL (8.4-10.2); Carbon Dioxide 27 mmol/L (22-30); Chloride 104 mmol/L (98-107); Glucose 111 mg/dL (74-99); Potassium 3.8 mmol/L (3.5-5.1); Sodium 141 mmol/L (137-145); Total Bilirubin 0.6 mg/dL (0.2-1.3); Total Protein 6.4 g/dL (6.3-8.2)
[2017-11-22 18:37] LABS: Creatine Kinase 47 U/L (30-135)
[2017-11-22 18:50] LABS: Creatine Kinase MB 0.7 ng/mL (0.0-2.4); Troponin I <0.012 ng/mL (0.000-0.034)
--- NOTE | 2017-11-22 19:06 | CT ---
EXAMINATION: CT brain wo con DATE AND TIME: 11/22/2017 6:57 PM CLINICAL INDICATION: Pain Weakness and dizziness TECHNIQUE: Standard departmental protocol. COMPARISON: CT 11/16/2017 FINDINGS: Continued evolution of the scant bilateral subdural collections seen on prior studies; bare ly perceptible presently. Shunt catheter appearance is unchanged, entering from a right posterolateral approach to have its tip in the body of the right lateral ventricle. The ventricular system has stable appearance. There is no new intracranial hemorrhage. There is no intracranial mass or mass effect. No definite new attenuation defect. The paranasal sinuses, middle ear cavities, and mastoid sinus air cells are clear. The orbits are unremarkable. IMPRESSION: STABLE APPEARANCE; NO NEW FINDINGS.
[2017-11-22 20:00] LABS: Partial Thromboplastin Time 19.2 sec (22.0-30.0)
[2017-11-22 20:38] VITALS: BP 150/73; PULSE 55
[2017-11-22 20:45] VITALS: TEMP 97.3
== END 2017-11-22 20:43 | disposition home or self-care (01) ==
LOC: EC 15:16
DX: R42 Dizziness and giddiness (principal); R11.2 Nausea with vomiting, unspecified; R53.1 Weakness; E11.9 Type 2 diabetes mellitus without complications; E78.5 Hyperlipidemia, unspecified; I10 Essential (primary) hypertension; Z86.73 Personal history of transient ischemic attack (TIA), and cerebral infarction without residual deficits; Z87.828 Personal history of other (healed) physical injury and trauma; Z90.49 Acquired absence of other specified parts of digestive tract; Z90.710 Acquired absence of both cervix and uterus; Z98.2 Presence of cerebrospinal fluid drainage device; Z98.890 Other specified postprocedural states; Z79.82 Long term (current) use of aspirin; Z79.84 Long term (current) use of oral hypoglycemic drugs; Z79.899 Other long term (current) drug therapy; Z88.2 Allergy status to sulfonamides; Z91.048 Other nonmedicinal substance allergy status
CPT/HCPCS: 36415; 70450; 80053; 81001; 82550; 82553; 84484; 85025; 85610; 85730; 93005; 96360; 96361; 99285

== ENCOUNTER → 2019-07-27 | Outpatient (CLI) | payer MEDICARE ==
--- NOTE | 2019-07-27 10:56 | US ---
EXAMINATION TYPE: US pelvic limited DATE OF EXAM: 07/27/2019 COMPARISON:CT 2008. CLINICAL HISTORY: R10.2 Pelvic and perineal pain. TECHNIQUE: Transabdominal (TA). Patient surgical history of hysterectomy and bilateral oophorectomy EXAM MEASUREMENTS: Uterus: Surgically absent Right Ovary: Surgically absent Left Ovary: Surgically absent 1. Uterus: Surgically absent 2. Endometrium: Surgically absent 3. Right Ovary: Surgically absent 4. Left Ovary: Surgically absent 5. Bilateral Adnexa: wnl 6. Posterior cul-de-sac: wnl 7. Bladder: wnl Uterus is surgically absent. No free fluid in pelvis. Visualized portion of bladder unremarkable. No concerning adnexal masses. IMPRESSION: Unremarkable transabdominal pelvic ultrasound study.
== END | disposition home or self-care (01) ==
LOC: RADUSWWP 10:17
PROVIDERS: ATTEND Family Medicine
DX: R10.2 Pelvic and perineal pain (principal)
CPT/HCPCS: 76857

== ENCOUNTER → 2019-08-23 | Outpatient (CLI) | payer MEDICARE ==
--- NOTE | 2019-08-24 04:36 | CT ---
EXAMINATION TYPE: CT abdomen pelvis w con DATE OF EXAM: 08/23/2019 COMPARISON: 08/06/14 and 10/31/2008 HISTORY: 78-year-old female with abdominal and pelvic pain TECHNIQUE: Contiguous axial scanning of the abdomen and pelvis following administration of 100 ml Iso pamela 300 IV contrast. Delayed images through the kidneys and coronal/sagittal reconstructions perform ed. CT DLP: 1042 mGycm Automated exposure control for dose reduction was used. FINDINGS: Heart normal size without pericardial effusion. Some strandy atelectasis at the left base. No pleural effusion. Tiny hiatal hernia. Tiny 6 mm hypodensity posterior right liver lobe too small for accurate CT characterization, probable cyst. Portal venous system is patent. No biliary ductal dilatation. The gallbladder, adrenal glands, and spleen appear within normal limits. 8 mm cystic lesion at the tip of the pancreatic tail may have been subtly apparent on the 08/06/2014 e xam and retrospect though that exam was motion limited. Possible additional 1.0 cm hypodense lesion a t the uncinate process. Short interval follow-up is recommended. These were not apparent on the 2008 study. Bilateral parapelvic cysts measuring up to 3.2 cm on the left and 1.9 cm on the right. Mild atherosclerotic calcifications abdominal aorta and iliac arteries. No dilated small bowel, free fluid, or free air. No mesenteric or retroperitoneal lymphadenopathy. Right-sided [employer] shunt catheter has its tip in the right mid to lower abdomen. There is trace interloop ascites in the mid abdomen, axial image 45, probably secondary to the [employer] shunt. Scattered mild to moderate stool. No pericolonic inflammatory change. Bladder nondistended. Numerous pelvic phleboliths. Uterus surgically absent. Neither ovary clearly vi sualized. Trace right adnexal free fluid was present back on 2008 as well, likely secondary to the [employer] shunt catheter. Bones: Degenerative dextroconvex scoliosis of the lower lumbar spine. IMPRESSION: 1. RIGHT-SIDED [employer] SHUNT CATHETER. TRACE INTERLOOP ASCITES WITHIN THE MID ABDOMEN AND TRACE RIGHT ADNE XAL FREE FLUID LIKELY SECONDARY TO THE FUNCTIONAL CATHETER. 2. 8 MM CYSTIC LESION TIP OF THE PANCREATIC TAIL AND 1.0 CM LESION WITHIN THE UNCINATE PROCESS. LIMIT ED ABILITY TO DETERMINE STABILITY FROM 2014 DUE TO PROMINENT MOTION ON THAT EXAM. NOT CLEARLY SEEN IN 2008. SIX-MONTH FOLLOW-UP PANCREAS MRI RECOMMENDED.
== END | disposition home or self-care (01) ==
LOC: RADCTMAIN 13:59
PROVIDERS: ATTEND Family Medicine
DX: K86.2 Cyst of pancreas (principal); Z98.2 Presence of cerebrospinal fluid drainage device; R10.13 Epigastric pain; R10.2 Pelvic and perineal pain
CPT/HCPCS: 82565; 84520; 74177; 36415; Q9967

== ENCOUNTER → 2021-07-31 | Outpatient (CLI) | payer MEDICARE ==
--- NOTE | 2021-07-31 08:46 | US ---
EXAMINATION TYPE: US venous doppler duplex LE LT DATE OF EXAM: 07/31/2021 8:18 AM COMPARISON: NONE CLINICAL HISTORY: M79.662 PAIN IN LT LOWER LIMB. Left calf pain x 3 weeks, patient states it has less ened in severity. Not on blood thinners. No redness. No swelling. SIDE PERFORMED: Left TECHNIQUE: The lower extremity deep venous system is examined utilizing real time linear array sonog shanae with graded compression, doppler sonography and color-flow sonography. VESSELS IMAGED: Common Femoral Vein Deep Femoral Vein Greater Saphenous Vein * Femoral Vein Popliteal Vein Small Saphenous Vein * Proximal Calf Veins (* superficial vessels) Left Leg: Negative for DVT IMPRESSION: 1. Left lower extremity ultrasound negative for deep venous thrombosis.
== END | disposition home or self-care (01) ==
LOC: RADUSWWP 07:52
PROVIDERS: ATTEND Family Medicine
DX: M79.662 Pain in left lower leg (principal)

== ENCOUNTER → 2021-09-25 | Outpatient (CLI) | payer MEDICARE ==
[2021-09-25 19:03] LABS: T4, Free (Free Thyroxine) 1.09 ng/dL (0.800-1.800)
== END | disposition home or self-care (01) ==
LOC: LABWHC1 12:12
PROVIDERS: ATTEND Internal Medicine Endocrinology, Diabetes & Metabolism
DX: E05.90 Thyrotoxicosis, unspecified without thyrotoxic crisis or storm (principal)
CPT/HCPCS: 36415; 84439; 84443; 84445; 84480

== ENCOUNTER → 2021-10-17 | Outpatient (CLI) | payer MEDICARE ==
--- NOTE | 2021-10-17 12:22 | US ---
EXAMINATION TYPE: US abdomen comp/pelvis limited DATE OF EXAM: 10/17/2021 COMPARISON: CT 2019 CLINICAL HISTORY: Lower abd pain. Lower abdomen pain EXAM MEASUREMENTS: Liver Length: 13.9 cm Gallbladder Wall: 0.2 cm CBD: 0.3 cm Spleen: 8.9 cm Right Kidney: 8.8 x 4.6 x 4.1 cm Left Kidney: 9.0 x 4.6 x 4.7 cm Pancreas: visualized portions wnl, limited by overlying midline bowel gas Liver: wnl Gallbladder: wnl CBD: visualized portions wnl, limited by overlying bowel gas Spleen: wnl Right Kidney: 2.2cm hypoechoic area medial inferior pole Left Kidney: dilated renal pelvis Upper IVC: wnl Abd Aorta: proximal and mid portions wnl, distal portion obscured by overlying midline bowel gas Bladder: wnl Bilateral Jets Seen yes IMPRESSION: 1. Parapelvic cyst right kidney. 3. Dilated left renal pelvis could reflect right hydronephrosis versus extrarenal pelvis.
== END | disposition home or self-care (01) ==
LOC: RADUSWWP 09:06
PROVIDERS: ATTEND Family Medicine
DX: N94.89 Other specified conditions associated with female genital organs and menstrual cycle (principal)
CPT/HCPCS: 76700; 76857

== ENCOUNTER 2021-11-06 10:38 | Emergency (ER) | payer MEDICARE ==
[2021-11-06 10:49] VITALS: TEMP 97.8
--- NOTE | 2021-11-06 12:19 | ED ---
General Adult HPI - General Chief complaint: Recheck/Abnormal Lab/Rx Stated complaint: hypotension Time Seen by Provider: 11/06/21 11:54 Source: patient, family, RN notes reviewed Mode of arrival: ambulatory Limitations: no limitations - History of Present Illness Initial comments: Patient is a pleasant 81-year-old female presenting to the emergency department with concerns with lightheadedness. Patient did have recent changes in her blood pressure medication. Patient last few days has had mild lightheadedness, today. Patient took her blood pressure at 104 systolic. No syncope. No chest pain or dyspnea. Patient states prior to this her blood pressure was running in the 180s regularly. - Related Data Home Medications Medication Instructions Recorded Confirmed Glimepiride [Amaryl] 2 mg PO AC-SUPPER 11/16/17 11/22/17 Lisinopril-Hctz 20-25 mg 1 tab PO HS 11/16/17 11/22/17 [Zestoretic 20-25] Rosuvastatin [Crestor] 10 mg PO HS 11/16/17 11/22/17 metFORMIN HCL [Glucophage] 1,000 mg PO DAILY 11/16/17 11/22/17 Aspirin [Adult Low Dose Aspirin EC] 81 mg PO DAILY 11/22/17 11/22/17 [place]-3 Fatty Acids/Fish Oil [Fish 1 cap PO DAILY 11/22/17 11/22/17 Oil 1,000 mg Softgel] metFORMIN HCL [Glucophage] 500 mg PO HS 11/22/17 11/22/17 Allergies Allergy/AdvReac Type Severity Reaction Status Date / Time iodine Allergy Rash/Hives Verified 11/06/21 13:21 Sulfa (Sulfonamide Allergy Rash/Hives Verified 11/06/21 13:21 Antibiotics) Review of Systems ROS Statement: Those systems with pertinent positive or pertinent negative responses have been documented in the HPI. ROS Other: All systems not noted in ROS Statement are negative. Constitutional: Denies: fever Eyes: Denies: eye pain ENT: Denies: ear pain Respiratory: Denies: cough Cardiovascular: Denies: chest pain Endocrine: Denies: fatigue Gastrointestinal: Denies: abdominal pain, vomiting Genitourinary: Denies: dysuria Musculoskeletal: Denies: back pain Skin: Denies: rash Neurological: Denies: headache Past Medical History Past Medical History: CVA/TIA, Diabetes Mellitus, Hyperlipidemia, Hypertension Additional Past Medical History / Comment(s): subdural hematoma History of Any Multi-Drug Resistant Organisms: None Reported Past Surgical History: Appendectomy, Heart Catheterization, Hernia Repair, Hysterectomy Additional Past Surgical History / Comment(s): 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 Absent: tenderness Extremities exam: Present: normal inspection. Absent: pedal edema, calf ten derness Neurological exam: Present: alert, oriented X3, CN II-XII intact. Absent: motor sensory deficit Expanded Motor strength exam: RUE: 5, LUE: 5, RLE: 5, LLE: 5 Psychiatric exam: Present: normal affect, normal mood Skin exam: Present: normal color Course Vital Signs 11/06/21 11/06/21 10:46 13:33 Temperature 97.8 F Pulse Rate 74 64 Respiratory 20 16 Rate Blood Pressure 186/76 159/75 O2 Sat by Pulse 98 97 Oximetry Medical Decision Making - Medical Decision Making Discussion had with patient regarding plans to hold Norvasc and continue to check her blood pressure frequently. The blood pressure does run high patient is advised to resume Norvasc at half dose. Patient is advised close follow-up with her doctor. - Lab Data Result diagrams: 11/06/21 12:29 11/06/21 12:29 Lab Results 11/06/21 11/06/21 11/06/21 Range/Units 12:29 12:29 12:54 WBC 7.1 (3.8-10.6) k/uL RBC 4.94 (3.80-5.40) m/uL Hgb 14.6 (11.4-16.0) gm/dL Hct 44.6 (34.0-46.0) % MCV 90.2 (80.0-100.0) fL MCH 29.6 (25.0-35.0) pg MCHC 32.8 (31.0-37.0) g/dL RDW 13.1 (11.5-15.5) % Plt Count 218 (150-450) k/uL MPV 11.3 Neutrophils % 72 % Lymphocytes % 20 % Monocytes % 4 % Eosinophils % 1 % Basophils % 1 % Neutrophils # 5.1 (1.3-7.7) k/uL Lymphocytes # 1.4 (1.0-4.8) k/uL Monocytes # 0.3 (0-1.0) k/uL Eosinophils # 0.1 (0-0.7) k/uL Basophils # 0.0 (0-0.2) k/uL Sodium 144 (137-145) mmol/L Potassium 4.1 (3.5-5.1) mmol/L Chloride 108 H (98-107) mmol/L Carbon Dioxide 22 (22-30) mmol/L Anion Gap 14 mmol/L BUN 23 H (7-17) mg/dL Creatinine 0.97 (0.52-1.04) mg/dL Est GFR (CKD-EPI)AfAm 63 (>60 ml/min/1.73 sqM) Est GFR (CKD-EPI)NonAf 54 (>60 ml/min/1.73 sqM) Glucose 130 H (74-99) mg/dL Calcium 9.7 (8.4-10.2) mg/dL Magnesium 1.8 (1.6-2.3) mg/dL Total Bilirubin 0.3 (0.2-1.3) mg/dL AST 23 (14-36) U/L ALT 17 (4-34) U/L Alkaline Phosphatase 87 (38-126) U/L Total Protein 6.7 (6.3-8.2) g/dL Albumin 4.3 (3.5-5.0) g/dL TSH 0.122 L (0.465-4.680) mIU/L Free T4 1.07 (0.78-2.19) ng/dL Free T3 pg/mL 3.5 (2.8-5.3) pg/ml Urine Color Colorless Urine Appearance Clear (Clear) Urine pH 5.0 (5.0-8.0) Ur Specific [place] 1.011 (1.001-1.035) Urine Protein Negative (Negative) Urine Glucose (UA) 4+ H (Negative) Urine Ketones Negative (Negative) Urine Blood Negative (Negative) Urine Nitrite Negative (Negative) Urine Bilirubin Negative (Negative) Urine Urobilinogen <2.0 (<2.0) mg/dL Ur Leukocyte Esterase Small H (Negative) Urine RBC 1 (0-5) /hpf Urine WBC 4 (0-5) /hpf Ur Squamous Epith Cells 1 (0-4) /hpf Urine Mucus Rare H (None) /hpf Disposition Clinical Impression: Lightheadedness Disposition: HOME SELF-CARE Condition: Stable Instructions (If sedation given, give patient instructions): Lightheadedness (ED) Additional Instructions: Please do follow-up to primary care physician in the next couple days for recheck. Hold Norvasc until follow-up. Continue to monitor blood pressure frequently. If blood pressure runs high resume at a half dose. Is patient prescribed a controlled substance at d/c from ED?: No Referrals: Rosalina Mcclellan MD [Primary Care Provider] - 1-2 days Time of Disposition: 13:42
--- NOTE | 2021-11-06 13:00 | XR ---
EXAMINATION TYPE: XR chest 2V DATE OF EXAM: 11/06/2021 COMPARISON: 11/16/17 HISTORY: Shortness of breath TECHNIQUE: Frontal and lateral views of the chest are obtained. FINDINGS: Scattered senescent parenchymal changes noted. Hyperinflation compatible with COPD. No evidence for infiltrate. No evidence for atelectasis. Heart size is stable. Mediastinal structures are stable and grossly unremarkable. No evidence for hilar prominence. Degenerative changes dorsal spine. IMPRESSION: 1. No evidence for acute pulmonary disease.
[2021-11-06 13:03] LABS: Albumin 4.3 g/dL (3.5-5.0); Calcium 9.7 mg/dL (8.4-10.2); Magnesium 1.8 mg/dL (1.6-2.3); Potassium 4.1 mmol/L (3.5-5.1); Total Bilirubin 0.3 mg/dL (0.2-1.3); Total Protein 6.7 g/dL (6.3-8.2)
[2021-11-06 13:04] LABS: Basophils % (A) 1 %; Eosinophils # (A) 0.1 k/uL (0-0.7); Eosinophils % (A) 1 %; HCT 44.6 % (34.0-46.0); HGB 14.6 gm/dL (11.4-16.0); Lymphocytes # (A) 1.4 k/uL (1.0-4.8); Lymphocytes % (A) 20 %; MCH 29.6 pg (25.0-35.0); MCHC 32.8 g/dL (31.0-37.0); MCV 90.2 fL (80.0-100.0); Mean Platelet Volume 11.3; Monocytes # (A) 0.3 k/uL (0-1.0); Monocytes % (A) 4 %; Neutrophils # (A) 5.1 k/uL (1.3-7.7); Neutrophils % (A) 72 %; Platelet Count 218 k/uL (150-450); RBC 4.94 m/uL (3.80-5.40); RDW 13.1 % (11.5-15.5); WBC 7.1 k/uL (3.8-10.6)
[2021-11-06 13:18] LABS: T4, Free (Free Thyroxine) 1.07 ng/dL (0.78-2.19)
[2021-11-06 13:25] LABS: Appearance,Urine Clear (Clear); Bilirubin,Urine Negative (Negative); Blood,Urine Negative (Negative); Color,Urine Colorless; Glucose,Urine (UA) 4+ (Negative); Ketones,Urine Negative (Negative); Leukocyte Esterase,Urine Small (Negative); Mucus,Urine Rare /hpf; Nitrite,Urine Negative (Negative); Protein,Urine Negative (Negative); RBC,Urine 1 /hpf (0-5); Specific Gravity,Urine 1.011 (1.001-1.035); Squamous Epithelial Cell,Urine 1 /hpf (0-4); Urobilinogen,Urine <2.0 mg/dL (<2.0); WBC,Urine 4 /hpf (0-5)
[2021-11-06 13:39] VITALS: BP 159/75; PULSE 64; RESP 16
== END 2021-11-06 14:01 | disposition home or self-care (01) ==
LOC: EC 10:38
DX: R42 Dizziness and giddiness (principal); Z86.73 Personal history of transient ischemic attack (TIA), and cerebral infarction without residual deficits; E11.9 Type 2 diabetes mellitus without complications; E78.5 Hyperlipidemia, unspecified; I10 Essential (primary) hypertension; Z91.041 Radiographic dye allergy status; Z88.2 Allergy status to sulfonamides; Z79.82 Long term (current) use of aspirin; Z79.899 Other long term (current) drug therapy
CPT/HCPCS: 36415; 71046; 80053; 81001; 83735; 84439; 84443; 84481; 85025; 93005; 99284

== ENCOUNTER 2023-08-11 13:51 | Emergency (ER) | payer MEDICARE ==
--- NOTE | 2023-08-11 14:29 | ED ---
General Adult HPI - General Chief complaint: Weakness Stated complaint: recheck Time Seen by Provider: 08/11/23 14:00 Source: patient, family, RN notes reviewed, old records reviewed Mode of arrival: ambulatory Limitations: no limitations - History of Present Illness Initial comments: This is an 82-year-old female who presents to the emergency department stating that last Wednesday she had an episode where she thought she was going to pass out but she never did but ever since then she has been extremely dizzy and hard to ambulate without grabbing onto some. Her states she has to be held by him so she can get around. Patient states as long she is lying in bed she has no symptoms. Patient denies headache patient denies any numbness or focal weakness. Patient is chest pain difficulty breathing shortness of breath or palpitations. Patient denies any recent fever chills or cough. Patient denies any abdominal pain patient has nausea vomiting diarrhea - Related Data Home Medications Medication Instructions Recorded Confirmed Rosuvastatin [Crestor] 10 mg PO HS 11/16/17 08/11/23 Aspirin [Adult Low Dose Aspirin EC] 81 mg PO HS 11/22/17 08/11/23 metFORMIN HCL [Glucophage] 500 mg PO DAILY 11/22/17 08/11/23 Empagliflozin [Jardiance] 10 mg PO DAILY 11/06/21 08/11/23 Pioglitazone [Actos] 30 mg PO DAILY 11/06/21 08/11/23 amLODIPine [Norvasc] 2.5 mg PO DAILY 11/06/21 08/11/23 cloNIDine HCL [Catapres] 0.1 mg PO DAILY PRN 11/06/21 08/11/23 Furosemide [Lasix] 40 mg PO DAILY 08/11/23 08/11/23 Hydroquinone [Hydroquinone 4%] 1 applic TOPICAL DIRECTED 08/11/23 08/11/23 Krill/Bangor-3/Dha/Epa/Lipids 1 cap PO DAILY 08/11/23 08/11/23 [Krill Oil 350 mg Softgel] Levothyroxine Sodium [Tirosint] 100 mcg PO DAILY 08/11/23 08/11/23 Meclizine [Antivert] 25 mg PO TID PRN 08/11/23 08/11/23 Vitamin C/Biotin [Hair, Skin and 1 tab PO DAILY 08/11/23 08/11/23 Nails Chew] lisinopriL [Zestril] 40 mg PO HS 08/11/23 08/11/23 Previous Rx's Medication Instructions Recorded Meclizine [Antivert] 25 mg PO TID #20 tab 08/11/23 Allergies Allergy/AdvReac Type Severity Reaction Status Date / Time iodine Allergy Rash/Hives Verified 08/11/23 13:54 Sulfa (Sulfonamide Allergy Rash/Hives Verified 08/11/23 13:54 Antibiotics) Review of Systems ROS Statement: Those systems with pertinent positive or pertinent negative responses have been documented in the HPI. ROS Other: All systems not noted in ROS Statement are negative. 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 Patient is nontoxic and well- hydrated and is in no acute distress. ENT: Neck is soft and supple. No significant lymphadenopathy is noted. Oropharynx i s clear. Moist mucous membranes. Neck has full range of motion without eliciting any pain. EYES: The sclera were anicteric and conjunctiva were pink and moist. Extraocular movements were intact and pupils were equal round and reactive to light. Eyelids were unremarkable. PULMONARY: Unlabored respirations. Good breath sounds bilaterally. No audible rales rhonchi or wheezing was noted. CARDIOVASCULAR: There is a regular rate and rhythm without any murmurs gallops or rubs. ABDOMEN: Soft and nontender with normal bowel sounds. SKIN: Skin is clear with no lesions or rashes and otherwise unremarkable. NEUROLOGIC: Patient is alert and oriented x3. Cranial nerves II through XII are grossly intact. Motor and sensory are also intact. Normal speech, volume and content. Symmetrical smile. Finger-nose testing was normal bilaterally MUSCULOSKELETAL: Normal extremities with adequate strength and full range of motion. LYMPHATICS: No significant lymphadenopathy is noted PSYCHIATRIC: Normal psychiatric evaluation. Limitations: no limitations Course Vital Signs 08/11/23 08/11/23 08/11/23 13:52 14:17 15:16 Temperature 97.5 F L Pulse Rate 79 81 78 Respiratory 16 18 18 Rate Blood Pressure 170/88 201/98 148/67 O2 Sat by Pulse 97 99 96 Oximetry 08/11/23 16:25 Temperature 97.7 F Pulse Rate 57 L Respiratory 17 Rate Blood Pressure 152/69 O2 Sat by Pulse 97 Oximetry Medical Decision Making - Medical Decision Making EKG is interpreted by myself. EKG shows a sinus rhythm at 61 bpm. 144 QRS is 104 QT interval is 423 QTc is 426. Patient's EKG shows no ST segment ovation or depression. Was pt. sent in by a medical professional or institution (, PA, MANAGER HOSPITAL[facility], urgent care, hospital, or senior living...) When possible be specific @ -No Did you speak to anyone other than the patient for history (EMS, parent, family, police, friend...)? What history was obtained from this source @ -No Did you review nursing and triage notes (agree or disagree)? Why? @ -I reviewed and agree with nursing and triage notes Were old charts reviewed (outside hosp., previous admission, EMS record, old EKG, old radiological studies, urgent care reports/EKG's, senior living records)? Report findings @ -No old charts were reviewed Differential Diagnosis? @ -Differential Dizziness: Benign paroxysmal positional Vertigo, Menieres disease, otitis media, acoustic neuroma, vertebrobasilar insufficiency, cerebellar stroke, encephalitis, hypovolemic, arrhythmia, coronary artery syndrome, anemia, this is not meant to be an all-inclusive list EKG interpreted by me (3pts min.). @ -As above X-rays interpreted by me (1pt min.). @ -Chest x-ray shows no acute abnormality CT interpreted by me (1pt min.). @ -CT of the brain shows no acute normality CT angio shows no acute abnormality U/S interpreted by me (1pt. min.). @ -None done What testing was considered but not performed or refused? (CT, X-rays, U/S, labs)? Why? @ -None What meds were considered but not given or refused? Why? @ -None Did you discuss the management of the patient with other professionals (professionals i.e. , PA, [facility], lab, RT, psych nurse, group social worker, fish hatchery superintendent, teacher, aboriginal home school liaison officer, supervisor case loading)? Give summary @ -No Was smoking cessation discussed for >3mins.? @ -No Was critical care preformed (if so, how long)? @ -No Were there social determinants of health that impacted care today? How? (Homelessness, low income, unemployed, alcoholism, drug addiction, transportation, low edu. Level, literacy, decrease access to med. care, intermediate, re hab)? @ -No Was there de-escalation of care discussed even if they declined (Discuss DNR or withdrawal of care, Hospice)? DNR status @ -No What co-morbidities impacted this encounter? (DM, HTN, Smoking, COPD, CAD, Cancer, CVA, ARF, Chemo, Hep., AIDS, mental health diagnosis, sleep apnea, morbid obesity)? @ -None Was patient admitted / discharged? Hospital course, mention meds given and route, prescriptions, significant lab abnormalities, going to OR and other pertinent info. @ -Patient's CTs x-rays and lab work were essentially normal. Went back and discussed the case with the patient she did at this time mention she has a history of vertigo and this could be her vertigo. Undiagnosed new problem with uncertain prognosis? @ -No Drug Therapy requiring intensive monitoring for toxicity (Heparin, Nitro, Insulin, Cardizem)? @ -No Were any procedures done? @ -No Diagnosis/symptom? @ -Vertigo Acute, or Chronic, or Acute on Chronic? @ -Acute Uncomplicated (without systemic symptoms) or Complicated (systemic symptoms)? @ -Complicated Side effects of treatment? @ -No Exacerbation, Progression, or Severe Exacerbation? @ -No Poses a threat to life or bodily function? How? (Chest pain, [place], ME, pneumonia, PE, COPD, DKA, ARF, appy, cholecystitis, CVA, Diverticulitis, Homicidal, Suicidal, threat to staff... and all critical care pts) @ -No - Lab Data Result diagrams: 08/11/23 14:47 08/11/23 14:47 Lab Results 08/11/23 08/11/23 08/11/23 Range/Units 14:47 14:47 14:47 WBC 6.3 (3.8-10.6) k/uL RBC 4.11 (3.80-5.40) m/uL Hgb 12.6 (11.4-16.0) gm/dL Hct 39.5 (34.0-46.0) % MCV 96.2 (80.0-100.0) fL MCH 30.7 (25.0-35.0) pg MCHC 32.0 (31.0-37.0) g/dL RDW 13.6 (11.5-15.5) % Plt Count 171 (150-450) k/uL MPV 10.4 Neutrophils % 67 % Lymphocytes % 23 % Monocytes % 6 % Eosinophils % 2 % Basophils % 0 % Neutrophils # 4.2 (1.3-7.7) k/uL Lymphocytes # 1.5 (1.0-4.8) k/uL Monocytes # 0.4 (0-1.0) k/uL Eosinophils # 0.1 (0-0.7) k/uL Basophils # 0.0 (0-0.2) k/uL PT 10.0 (10.0-12.5) sec INR 0.9 (<1.2) APTT 22.5 (22.0-30.0) sec Sodium 140 (137-145) mmol/L Potassium 3.8 (3.5-5.1) mmol/L Chloride 107 (98-107) mmol/L Carbon Dioxide 27 (22-30) mmol/L Anion Gap 6 mmol/L BUN 23 H (7-17) mg/dL Creatinine 1.14 H (0.52-1.04) mg/dL Est GFR (CKD-EPI)AfAm 51 (>60 ml/min/1.73 sqM) Est GFR (CKD-EPI)NonAf 45 (>60 ml/min/1.73 sqM) Glucose 128 H (74-99) mg/dL Calcium 9.2 (8.4-10.2) mg/dL Total Bilirubin 0.6 (0.2-1.3) mg/dL AST 22 (14-36) U/L ALT 14 (4-34) U/L Alkaline Phosphatase 71 (38-126) U/L Creatine Kinase 71 (30-135) U/L Troponin I (0.000-0.034) ng/mL Total Protein 6.2 L (6.3-8.2) g/dL Albumin 3.9 (3.5-5.0) g/dL 08/11/23 Range/Units 14:47 WBC (3.8-10.6) k/uL RBC (3.80-5.40) m/uL Hgb (11.4-16.0) gm/dL Hct (34.0-46.0) % MCV (80.0-100.0) fL MCH (25.0-35.0) pg MCHC (31.0-37.0) g/dL RDW (11.5-15.5) % Plt Count (150-450) k/uL MPV Neutrophils % % Lymphocytes % % Monocytes % % Eosinophils % % Basophils % % Neutrophils # (1.3-7.7) k/uL Lymphocytes # (1.0-4.8) k/uL Monocytes # (0-1.0) k/uL Eosinophils # (0-0.7) k/uL Basophils # (0-0.2) k/uL PT (10.0-12.5) sec INR (<1.2) APTT (22.0-30.0) sec Sodium (137-145) mmol/L Potassium (3.5-5.1) mmol/L Chloride (98-107) mmol/L Carbon Dioxide (22-30) mmol/L Anion Gap mmol/L BUN (7-17) mg/dL Creatinine (0.52-1.04) mg/dL Est GFR (CKD-EPI)AfAm (>60 ml/min/1.73 sqM) Est GFR (CKD-EPI)NonAf (>60 ml/min/1.73 sqM) Glucose (74-99) mg/dL Calcium (8.4-10.2) mg/dL Total Bilirubin (0.2-1.3) mg/dL AST (14-36) U/L ALT (4-34) U/L Alkaline Phosphatase (38-126) U/L Creatine Kinase (30-135) U/L Troponin I <0.012 (0.000-0.034) ng/mL Total Protein (6.3-8.2) g/dL Albumin (3.5-5.0) g/dL Disposition Clinical Impression: Vertigo Disposition: HOME SELF-CARE Condition: Good Instructions (If sedation given, give patient instructions): Vertigo (ED) Prescriptions: Meclizine [Antivert] 25 mg PO TID #20 tab Is patient prescribed a controlled substance at d/c from ED?: No Referrals: Rosalina Mcclellan MD [Primary Care Provider] - 1-2 days Time of Disposition: 17:09
[2023-08-11 15:03] LABS: Basophils % (A) 0 %; Eosinophils # (A) 0.1 k/uL (0-0.7); Eosinophils % (A) 2 %; HCT 39.5 % (34.0-46.0); HGB 12.6 gm/dL (11.4-16.0); Lymphocytes # (A) 1.5 k/uL (1.0-4.8); Lymphocytes % (A) 23 %; MCH 30.7 pg (25.0-35.0); MCV 96.2 fL (80.0-100.0); Mean Platelet Volume 10.4; Monocytes # (A) 0.4 k/uL (0-1.0); Monocytes % (A) 6 %; Neutrophils # (A) 4.2 k/uL (1.3-7.7); Neutrophils % (A) 67 %; Platelet Count 171 k/uL (150-450); RBC 4.11 m/uL (3.80-5.40); RDW 13.6 % (11.5-15.5); WBC 6.3 k/uL (3.8-10.6)
[2023-08-11] MEDS: diphenhydrAMINE 50 MG/ML 1 ML VIAL IVP STA (15:09)
[2023-08-11] MEDS: FAMOTIDINE 20 MG/2 ML VIAL IV STA (15:09)
[2023-08-11] MEDS: methylPREDNISolone SOD SUCCI 125 MG/2 ML VIAL IV STA (15:09)
[2023-08-11 15:21] LABS: ALT 14 U/L (4-34); AST 22 U/L (14-36); African American GFR (CKD) 51 (>60 ml/min/1.73 sqM); Albumin 3.9 g/dL (3.5-5.0); Alkaline Phosphatase 71 U/L (38-126); Anion Gap 6 mmol/L; Blood Urea Nitrogen 23 mg/dL (7-17); Calcium 9.2 mg/dL (8.4-10.2); Carbon Dioxide 27 mmol/L (22-30); Chloride 107 mmol/L (98-107); Creatine Kinase 71 U/L (30-135); Glucose 128 mg/dL (74-99); Non-African American GFR(CKD) 45 (>60 ml/min/1.73 sqM); Potassium 3.8 mmol/L (3.5-5.1); Sodium 140 mmol/L (137-145); Total Bilirubin 0.6 mg/dL (0.2-1.3); Total Protein 6.2 g/dL (6.3-8.2)
[2023-08-11 15:30] LABS: INR 0.9 (<1.2); Partial Thromboplastin Time 22.5 sec (22.0-30.0)
--- NOTE | 2023-08-11 15:31 | XR ---
EXAMINATION TYPE: XR chest 2V DATE OF EXAM: 08/11/2023 COMPARISON: NONE TECHNIQUE: PA and lateral views submitted. HISTORY: 11/06/2021 FINDINGS: The lungs are clear and there is no pneumothorax, pleural effusion, or focal pneumonia. Heart size normal and no overt failure. Osseous structures demonstrate mild degenerative change. There is a cath eter overlying the right hemithorax. Arthropathy of the shoulders. Partial eventration of the right h emidiaphragm. Atherosclerotic change aorta. IMPRESSION: 1. No acute process.
--- NOTE | 2023-08-11 16:00 | CT ---
EXAMINATION TYPE: CT brain wo con CT DLP: Combined DLP of 1442 mGycm, Automated exposure control for dose reduction was used. DATE OF EXAM: 08/11/2023 3:45 PM COMPARISON: 11/22/2017. CLINICAL INDICATION:Female, 82 years old with history of Neuro deficit, acute, stroke suspected, Pt h as not been feeling well x 1 week. States shes getting worse by the day. Had a "spell" last week wher e she states she possibly had a stroke, increased weakness. TECHNIQUE: Brain: Axial CT images of the brain were obtained with coronal and sagittal reformats created and rev iewed. Contrast used: None. Oral contrast used: None. FINDINGS: Brain: Extra-axial spaces: No abnormal extra-axial fluid collections. Ventricular system: Ventriculostomy tubing tip terminating near midline in the right lateral ventricl e. Tubing appears intact. No evidence of hydrocephalus Cerebral parenchyma: No acute intraparenchymal hemorrhage or mass effect. The tom-white junction is well differentiated. Cerebellum: Unremarkable. Mass effect: No evidence of midline shift. Intracranial vasculature: Atherosclerotic calcifications of the intracranial vessels. Soft tissues: Normal. Calvarium/osseous structures: No depressed skull fracture. Paranasal sinuses and mastoid air cells: Mild scattered paranasal sinus disease. Visualized orbits: Bilateral aphakia IMPRESSION: 1. No acute intracranial process. 2. Tracheostomy tubing appears intact. No evidence for hydrocephalus
--- NOTE | 2023-08-11 16:15 | CT ---
EXAMINATION TYPE: CT angio head neck CT DLP: Combined DLP of 1442 mGycm, Automated exposure control for dose reduction was used. DATE OF EXAM: 08/11/2023 3:55 PM COMPARISON: None. CLINICAL INDICATION:Female, 82 years old with history of Neuro deficit, acute, stroke suspected; PHH, Pt has not been feeling well x 1 week. States shes getting worse by the day. Had a "spell" last week where she states she possibly had a stroke, increased weakness. TECHNIQUE: Axially acquired helical CT angiogram of the head and neck was obtained with contrast. Axi al images are supplemented with 3D reconstructions and MIP images which were post-processed at an in dependent workstation. NASCET criteria used. Contrast used:65 cc mL of Isovue 370 with IV Contrast, Oral contrast used: None. FINDINGS: CTA HEAD: No evidence of acute intracranial hemorrhage, mass effect, or midline shift. The ventricles, sulci, a nd cisterns are unremarkable. The visualized portions of the internal carotid arteries, middle cerebral arteries, anterior cerebral arteries, and posterior cerebral arteries are patent. The basilar and vertebral arteries are patent. CTA NECK: Right Carotid System: The common carotid artery and external carotid artery are patent. The carotid bifurcation demonstrate s no evidence of hemodynamically significant stenosis. The remaining portions of the internal carotid artery demonstrate normal size without significant narrowing. Left Carotid System: The common carotid artery and external carotid artery are patent. The carotid bifurcation demonstrate s no evidence of hemodynamically significant stenosis. The remaining portions of the internal carotid artery demonstrate normal size without significant narrowing. Vertebral arteries are patent without evidence hemodynamically significant stenosis. There is a three-vessel aortic arch. The origins of the great vessels are patent. No evidence of hemo dynamically significant stenosis. Upper thorax: IMPRESSION: Motion limited exam. 1. No evidence of dissection of the cervical internal carotid arteries or vertebral arteries or any e vidence of significant stenosis at the carotid bifurcations. 2. No evidence of intracranial high-grade stenosis or intracranial aneurysm.
[2023-08-11 17:19] VITALS: RESP 16
[2023-08-11 17:29] VITALS: BP 142/62; PULSE 64; TEMP 97.6
== END 2023-08-11 17:29 | disposition home or self-care (01) ==
LOC: EC 13:51
DX: R42 Dizziness and giddiness (principal); Z88.2 Allergy status to sulfonamides; Z88.8 Allergy status to other drugs, medicaments and biological substances
CPT/HCPCS: 36415; 93005; 80053; 82550; 84484; 85025; 85610; 85730; 71046; 70496; 70450; 70498; 99285; 96374; 96375 ×2; J1200; J3490; Q9967; J2919

== ENCOUNTER 2024-03-02 12:27 | Observation (INO) | payer MEDICARE ==
--- NOTE | 2024-03-02 12:50 | ED ---
General Adult HPI - General Chief complaint: Dizziness Stated complaint: Dizziness Time Seen by Provider: 03/02/24 12:34 Source: patient Mode of arrival: wheelchair Limitations: no limitations - History of Present Illness Initial comments: Dictation was produced using [employer] dictation software. please excuse any grammatical, word or spelling errors. Chief Complaint: 83-year-old female presents with dizziness History of Present Illness: Patient is a 83-year-old female she is a poor historian states that for the last day and a half she has been dizzy. States that this morning she woke up felt like the room was spinning. States that when she went to bed last night she felt like the room was spinning. Patient states that when she lies flat her symptoms seem to be improved. Whenever she tries to stand up feels like the room is spinning. Denies any headache. No numbness tingling paresthesias to arms or legs. The ROS documented in this emergency department record has been reviewed and confirmed by me. Those systems with pertinent positive or negative responses have been documented in the HPI. All other systems are other negative and/or noncontributory. - Related Data Home Medications Medication Instructions Recorded Confirmed Rosuvastatin [Crestor] 10 mg PO HS 11/16/17 08/11/23 Aspirin [Adult Low Dose Aspirin EC] 81 mg PO HS 11/22/17 08/11/23 metFORMIN HCL [Glucophage] 500 mg PO DAILY 11/22/17 08/11/23 Empagliflozin [Jardiance] 10 mg PO DAILY 11/06/21 08/11/23 Pioglitazone [Actos] 30 mg PO DAILY 11/06/21 08/11/23 amLODIPine [Norvasc] 2.5 mg PO DAILY 11/06/21 08/11/23 cloNIDine HCL [Catapres] 0.1 mg PO DAILY PRN 11/06/21 08/11/23 Furosemide [Lasix] 40 mg PO DAILY 08/11/23 08/11/23 Hydroquinone [Hydroquinone 4%] 1 applic TOPICAL DIRECTED 08/11/23 08/11/23 Krill/[place]-3/Dha/Epa/Lipids 1 cap PO DAILY 08/11/23 08/11/23 [Krill Oil 350 mg Softgel] Levothyroxine Sodium [Tirosint] 100 mcg PO DAILY 08/11/23 08/11/23 Meclizine [Antivert] 25 mg PO TID PRN 08/11/23 08/11/23 Vitamin C/Biotin [Hair, Skin and 1 tab PO DAILY 08/11/23 08/11/23 Nails Chew] lisinopriL [Zestril] 40 mg PO HS 08/11/23 08/11/23 Previous Rx's Medication Instructions Recorded Meclizine [Antivert] 25 mg PO TID #20 tab 08/11/23 Allergies Allergy/AdvReac Type Severity Reaction Status Date / Time iodine Allergy Rash/Hives Verified 03/02/24 12:28 Sulfa (Sulfonamide Allergy Rash/Hives Verified 03/02/24 12:28 Antibiotics) Review of Systems ROS Statement: Those systems with pertinent positive or pertinent negative responses have been documented in the HPI. ROS Other: All systems not noted in ROS Statement are negative. Past Medical History Past Medical History: CVA/TIA, Diabetes Mellitus, Hyperlipidemia, Hypertension Additional Past Medical History / Comment(s): subdural hematoma History of Any Multi-Drug Resistant Organisms: None Reported Past Surgical History: Appendectomy, Heart Catheterization, Hernia Repair, Hysterectomy Additional Past Surgical History / Comment(s): 2 shunts in the brain Past Psychological History: No Psychological Hx Reported Smoking Status: Never smoker Past Alcohol Use History: None Reported Past Drug Use History: None Reported General Exam - General Exam Comments Initial Comments: PHYSICAL EXAM: General Impression: Alert and oriented x3, not in acute distress HEENT: Normocephalic atraumatic, extra-ocular movements intact, pupils equal and reactive to light bilaterally, mucous membranes moist. Cardiovascular: Heart regular rate and rhythm Chest: Able to complete full sentences, no retractions, no tachypnea Abdomen: abdomen soft, non-tender, non-distended, no organomegaly Musculoskeletal: Pulses present and equal in all extremities, no peripheral edema Motor: no focal deficits noted Neurological: CN II-XII grossly intact, no focal motor or sensory deficits noted, left beating nystagmus with fast phase to the left. No rotatory or vertical nystagmus, no direction changing nystagmus Skin: Intact with no visualized rashes Psych: Normal affect and mood Limitations: no limitations Course Vital Signs 03/02/24 12:28 Temperature 98.1 F Pulse Rate 88 Respiratory 20 Rate Blood Pressure 183/86 O2 Sat by Pulse 97 Oximetry EKG Findings - EKG Comments: EKG Findings:: My EKG interpretation: Ventricular rate 78, sinus rhythm,. 130, QRS 91, QTc 4 9. No [place] prolongation, no QTC prolongation, no ST or T-wave changes noted. Overall, this EKG is unremarkable Medical Decision Making - Medical Decision Making Was pt. sent in by a medical professional or institution (, PA, FURNACE UNLOADER, urgent care, hospital, or skilled nursing...) When possible be specific @ -No Did you speak to anyone other than the patient for history (EMS, parent, family, police, friend...)? What history was obtained from this source @ -No Did you review nursing and triage notes (agree or disagree)? Why? @ -I reviewed and agree with nursing and triage notes Were old charts reviewed (outside hosp., previous admission, EMS record, old EKG, old radiological studies, urgent care reports/EKG's, skilled nursing records)? Report findings @ -No old charts were reviewed Differential Diagnosis (chest pain, altered mental status, abdominal pain women, abdominal pain men, vaginal bleeding, musculoskeletal, weakness, fever, dyspnea, syncope, headache, dizziness, GI bleed, back pain, seizure, CVA, palpatations, mental health)? @ -Differential Dizziness: Benign paroxysmal positional Vertigo, Meniere's disease, otitis media, acoustic neuroma, vertebrobasilar insufficiency, cerebellar stroke, encephalitis, hypovolemic, arrhythmia, coronary artery syndrome, anemia, this is not meant to be an all-inclusive list EKG interpreted by me (3pts min.). @ -See above X-rays interpreted by me (1pt min.). @ -None done CT interpreted by me (1pt min.). @ -CT brain shows no acute processes U/S interpreted by me (1pt. min.). @ -None done What testing was considered but not performed or refused? (CT, X-rays, U/S, labs)? Why? @ -None What meds were considered but not given or refused? Why? @ -None Was smoking cessation discussed for >3mins.? @ -No Were there social determinants of health that impacted care today? How? (Homelessness, low income, unemployed, alcoholism, drug addiction, transportation, low edu. Level, literacy, decrease access to med. care, [facility], rehab)? @ -No Was there de-escalation of care discussed even if they declined (Discuss DNR or withdrawal of care, Hospice)? DNR status @ -No What co-morbidities impacted this encounter? (DM, HTN, Smoking, COPD, CAD, Cancer, CVA, ARF, Chemo, Hep., AIDS, mental health diagnosis, sleep apnea, morbid obesity)? @ -None Was patient admitted / discharged? Hospital course, mention meds given and route, prescriptions, significant lab abnormalities, going to OR and other pertinent info. @ -83-year-old female presents to the emergency department with severe vertigo. She does not have any high risk features to suggest VISUAL MERCHANDISER involvement. Vital signs stable. Imaging studies are negative. Patient given symptomatic tr eatment. Reevaluated at bedside at 1:46 PM still significantly vertiginous unable to ambulate. She lives at home with her who is also debilitated. Patient be admitted with consultation to neurology. Patient given benzodiazepines. Did you discuss the management of the patient with other professionals (professionals i.e. , PA, FURNACE UNLOADER, lab, RT, psych nurse, social sciences lecturer, rn endoscopy, teacher, chief credit officer, caser shoe parts)? Give summary @ -No Was critical care preformed (if so, how long)? @ -No Undiagnosed new problem with uncertain prognosis? @ -No Drug Therapy requiring intensive monitoring for toxicity (Heparin, Nitro, Insulin, Cardizem)? @ -No Were any procedures done? @ -No Diagnosis/symptom? Acute, or Chronic, or Acute on Chronic? Uncomplicated (without systemic symptoms) or Complicated (systemic symptoms)? @ -Severe vertigo Side effects of treatment? @ -No Exacerbation, Progression, or Severe Exacerbation? @ -No Poses a threat to life or bodily function? How? (Chest pain, USA, LA, pneumonia, PE, COPD, DKA, ARF, appy, cholecystitis, CVA, Diverticulitis, Homicidal, Suicidal, threat to staff... and all critical care pts) @ -yes - Lab Data Result diagrams: 03/02/24 12:50 03/02/24 12:50 Lab Results 03/02/24 03/02/24 Range/Units 12:50 12:50 WBC 8.6 (3.8-10.6) k/uL RBC 4.69 (3.80-5.40) m/uL Hgb 13.9 (11.4-16.0) gm/dL Hct 42.6 (34.0-46.0) % MCV 90.8 (80.0-100.0) fL MCH 29.6 (25.0-35.0) pg MCHC 32.6 (31.0-37.0) g/dL RDW 13.4 (11.5-15.5) % Plt Count 241 (150-450) k/uL MPV 9.2 Neutrophils % 65 % Lymphocytes % 24 % Monocytes % 4 % Eosinophils % 3 % Basophils % 1 % Neutrophils # 5.6 (1.3-7.7) k/uL Lymphocytes # 2.1 (1.0-4.8) k/uL Monocytes # 0.4 (0-1.0) k/uL Eosinophils # 0.3 (0-0.7) k/uL Basophils # 0.1 (0-0.2) k/uL Sodium 141 (137-145) mmol/L Potassium 4.6 (3.5-5.1) mmol/L Chloride 108 H (98-107) mmol/L Carbon Dioxide 22 (22-30) mmol/L Anion Gap 11 mmol/L BUN 24 H (7-17) mg/dL Creatinine 1.07 H (0.52-1.04) mg/dL Est GFR (CKD-EPI)AfAm 55 (>60 ml/min/1.73 sqM) Est GFR (CKD-EPI)NonAf 48 (>60 ml/min/1.73 sqM) Glucose 131 H (74-99) mg/dL Calcium 9.5 (8.4-10.2) mg/dL Total Bilirubin 0.6 (0.2-1.3) mg/dL AST 21 (14-36) U/L ALT 15 (4-34) U/L Alkaline Phosphatase 99 (38-126) U/L Total Protein 6.8 (6.3-8.2) g/dL Albumin 4.1 (3.5-5.0) g/dL Disposition Clinical Impression: Vertigo Disposition: ADMITTED IP TO THIS [facility] Condition: Fair Referrals: Rosalina Mcclellan MD [Primary Care Provider] - 1-2 days Decision Time: 13:47
[2024-03-02 13:04] LABS: Basophils # (A) 0.1 k/uL (0-0.2); Basophils % (A) 1 %; Eosinophils # (A) 0.3 k/uL (0-0.7); Eosinophils % (A) 3 %; HCT 42.6 % (34.0-46.0); HGB 13.9 gm/dL (11.4-16.0); Lymphocytes # (A) 2.1 k/uL (1.0-4.8); Lymphocytes % (A) 24 %; MCH 29.6 pg (25.0-35.0); MCHC 32.6 g/dL (31.0-37.0); MCV 90.8 fL (80.0-100.0); Mean Platelet Volume 9.2; Monocytes # (A) 0.4 k/uL (0-1.0); Monocytes % (A) 4 %; Neutrophils # (A) 5.6 k/uL (1.3-7.7); Neutrophils % (A) 65 %; Platelet Count 241 k/uL (150-450); RBC 4.69 m/uL (3.80-5.40); RDW 13.4 % (11.5-15.5); WBC 8.6 k/uL (3.8-10.6)
--- NOTE | 2024-03-02 13:14 | CT ---
EXAMINATION TYPE: CT brain wo con DATE OF EXAM: 03/02/2024 1:09 PM COMPARISON: 08/11/2023 CLINICAL INDICATION: Female, 83 years old with history of vertigo, VERTIGO history of shunt catheter. TECHNIQUE: CT of the brain is performed utilizing 3 mm thick sections through the posterior fossa and 3 mm thick sections through the remaining calvarium. Study is performed within 24 hours of arrival to the hospital. Contrast used: mL of , (none if empty) CT DLP: 1125.6 mGycm, Automated exposure control for dose reduction was used. FINDINGS: No abnormal hyperdensity is present to suggest an acute intracranial hemorrhage. No mass lesion is evident. No acute infarcts are evident. Chronic appearing periventricular white matter hypodensity is present, likely on the basis of chronic white matter ischemic changes. A shunt catheter is present entering f rom the posterior right with the tip in the occipital horn lateral ventricle Ventricles and sulci are appropriate for the patient age. Some minimal extra-axial space prominence is present, this is stable from comparison. Paranasal sinuses and mastoid air cells within the [id number] are clear. IMPRESSION: 1. No acute intracranial process. Follow up MRI can be performed as clinically indicated. 2. Stable appearance of ventricles in a right shunt catheter. 3. Chronic appearing periventricular white matter ischemic changes, stable with some age-related atro phy. [facility], , 03/02/2024 1:12 PM
[2024-03-02 13:16] LABS: ALT 15 U/L (4-34); AST 21 U/L (14-36); African American GFR (CKD) 55 (>60 ml/min/1.73 sqM); Albumin 4.1 g/dL (3.5-5.0); Alkaline Phosphatase 99 U/L (38-126); Anion Gap 11 mmol/L; Blood Urea Nitrogen 24 mg/dL (7-17); Calcium 9.5 mg/dL (8.4-10.2); Carbon Dioxide 22 mmol/L (22-30); Chloride 108 mmol/L (98-107); Glucose 131 mg/dL (74-99); Non-African American GFR(CKD) 48 (>60 ml/min/1.73 sqM); Potassium 4.6 mmol/L (3.5-5.1); Sodium 141 mmol/L (137-145); Total Bilirubin 0.6 mg/dL (0.2-1.3); Total Protein 6.8 g/dL (6.3-8.2)
[2024-03-02] MEDS: SODIUM CHLORIDE 0.9% 1,000 ML IV STA (13:21)
[2024-03-02] MEDS: MECLIZINE 12.5 MG TAB PO STA (13:21)
[2024-03-02] MEDS: METOCLOPRAMIDE 5 MG/ML 2 ML VIAL IVP STA (13:21)
[2024-03-02] MEDS ORDERED: NALOXONE 0.4 MG/ML 1 ML VIAL IV PRN (13:44)
[2024-03-02] MEDS: SODIUM CHLORIDE 0.9% 1,000 ML IV SCH (13:51)
[2024-03-02] MEDS ORDERED: cloNIDine HCL 0.1 MG TAB PO PRN (14:35)
--- NOTE | 2024-03-02 14:46 | P.HPIM ---
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 She denies headache, vision changes, nausea, vomiting, abdominal pain, changes in bowel habits, fevers, chills. 2 days ago she had the worst episode of she had, she also noted associated chest pain radiating to the left upper extremity, currently chest pain-free Reviewed ER note from 08/2023: Presented for extreme dizziness and weakness, CT and CTA of the head done and showed no acute abnormalities, at that time patient related it was her causing the symptoms, she was discharged home on meclizine. Another ER visit 10/2021 initially with lightheadedness, likely related 11/2017x2 with dizziness. Goal at discharge home to follow-up with neurology and ENT. Pertinent positives and negatives as discussed in HPI, a complete review of systems was performed and all other systems are negative. ER course: Afebrile, initial blood pressure elevated 192/86, came down to 134/92, satting well on room air, normal heart rate Unremarkable CBC, CMP with normal sodium, potassium, creatinine 1.07, normal AST and ALT, CT head showed no acute intracranial, stable appearance of ventricles and lower extremity catheter, chronic lacunar EKG: Negative ischemic changes, age-related atrophy EKG showed sinus arrhythmia, no ST elevation, , QTc 409 Patient is admitted under observation status for further evaluation of severe vertigo, neurology consulted. Patient seen and examined at bedside. States that she feels better and the episode is almost resolved, patient's at bedside. Vital signs reviewed General: nontoxic, no distress, appears at stated age Derm: warm, dry Head: atraumatic, normocephalic, symmetric Eyes: EOMI, no lid lag, anicteric sclera, pupils equal round reactive to light ENT: Nose and ears atraumatic Neck: No thyromegaly, supple Mouth: no lip lesion, mucus membranes moist Cardiovascular: S1S2 reg, no murmur, no edema Lungs: clear to auscultation bilateral, no rhonchi, no rales, no wheeze, no accessory muscle use Abdominal: soft, nontender to palpation, no guarding, no appreciable organomegaly Ext: no gross muscle atrophy, muscle strength muscle strength 5 out of 5 in all 4 extremities, no contractures Neuro: CN II-XII grossly intact, normal finger-nose, no focal symptoms Psych: Alert, oriented, appropriate affect Assessment/Plan: [Active:] Recurrent vertigo History of vertigo History of NPH s/p shunt placement Chest pain, resolved -Orthostatic vitals -TSH, A1c, B9, B12 -Neurology consult -Troponin, TTE -meclizine 25 bid Hypertension -Home blood pressure usually 120s, higher in doctor's office -Continue home amlodipine, clonidine, lisinopril 2 DM not on insulin -Continue home glimepiride, metformin, pioglitazone Hyperlipidemia Continue home rosuvastatin Hypothyroidism Continue home levothyroxine The patient is admitted with an anticipated [greater] than 2 midnight stay as [inpatient/observation] status for evaluation of [severe vertebral]. CODE STATUS: DNR/DNI DVT prophylaxis: SCD Anticipated discharge date: 03/[address]: Home A total of [] minutes was spent on the care of this complex patient more than 50% of the time was spent in counseling and care coordination. Past Medical History Past Medical History: CVA/TIA, Diabetes Mellitus, Hyperlipidemia, Hypertension Additional Past Medical History / Comment(s): subdural hematoma History of Any Multi-Drug Resistant Organisms: None Reported Past Surgical History: Appendectomy, Heart Catheterization, Hernia Repair, Hysterectomy Additional Past Surgical History / Comment(s): 2 shunts in the brain Past Psychological History: No Psychological Hx Reported Smoking Status: Never smoker Past Alcohol Use History: None Reported Past Drug Use History: None Reported Medications and Allergies Home Medications Medication Instructions Recorded Confirmed Type Rosuvastatin [Crestor] 10 mg PO HS 11/16/17 03/02/24 History metFORMIN HCL [Glucophage] 500 mg PO DAILY 11/22/17 03/02/24 History Pioglitazone [Actos] 30 mg PO DAILY 11/06/21 03/02/24 History cloNIDine HCL [Catapres] 0.1 mg PO DAILY PRN 11/06/21 03/02/24 History Levothyroxine Sodium [Tirosint] 100 mcg PO DAILY 08/11/23 03/02/24 History lisinopriL [Zestril] 40 mg PO DAILY 08/11/23 03/02/24 History Glimepiride [Amaryl] 0.5 mg PO DAILY 03/02/24 03/02/24 History Omeprazole [PriLOSEC] 40 mg PO DAILY 03/02/24 03/02/24 History amLODIPine [Norvasc] 5 mg PO DAILY 03/02/24 03/02/24 History Allergies Allergy/AdvReac Type Severity Reaction Status Date / Time iodine Allergy Rash/Hives Verified 03/02/24 14:05 Sulfa (Sulfonamide Allergy Rash/Hives Verified 03/02/24 14:05 Antibiotics) Physical Exam Vitals: Vital Signs Temp Pulse Resp BP Pulse Ox 03/02/24 13:43 97.8 F 80 15 134/92 95 03/02/24 12:28 98.1 F 88 20 183/86 97 Intake and Output 03/01/24 03/02/24 03/02/24 22:59 06:59 14:59 Other: Weight 63.503 kg Results CBC & Chem 7: 03/02/24 12:50 03/02/24 12:50 Labs: Abnormal Lab Results - Last 24 Hours (Table) 03/02/24 Range/Units 12:50 Chloride 108 H (98-107) mmol/L BUN 24 H (7-17) mg/dL Creatinine 1.07 H (0.52-1.04) mg/dL Glucose 131 H (74-99) mg/dL
[2024-03-02] MEDS: ATORVASTATIN 20 MG TAB PO SCH (21:15)
[2024-03-02] MEDS: MECLIZINE 25 MG TAB PO SCH (21:16)
[2024-03-03] MEDS: PANTOPRAZOLE 40 MG TABLET PO SCH (05:33)
[2024-03-03] MEDS: LEVOTHYROXINE 100 MCG TAB PO SCH (05:33)
[2024-03-03 08:07] VITALS: RESP 17
[2024-03-03] MEDS: amLODIPine 5 MG TAB PO SCH (09:07)
[2024-03-03] MEDS: GLIMEPIRIDE 0.5 MG TAB PO SCH (09:07)
[2024-03-03] MEDS: PIOGLITAZONE 30 MG TAB PO SCH (09:07)
[2024-03-03] MEDS: lisinopriL 20 MG TAB PO SCH (09:07)
[2024-03-03] MEDS: FOLIC ACID 1 MG TAB PO SCH (09:07)
[2024-03-03] MEDS: metFORMIN 500 MG TAB PO SCH (09:07)
--- NOTE | 2024-03-03 14:06 | CA ---
Transthoracic Echo Report Name: Priscilla Forde Age: 83 Gender: F : 1940 Exam Date: 03/02/2024 16:16 Exam Location: [facility] Ht (in): 62 Wt (lb): 140 Ordering Physician: Radha Lawrence MD Attending/Referring Phys: Chemical Analyst Donna Reddy RDCS Procedure CPT: Indications: chest pain, radiating to the LUE Cardiac Hx: Technical Quality: Good Contrast 1: Total Dose (mL): Contrast 2: Total Dose (mL): MEASUREMENTS (Male / Female) Normal Values 2D ECHO LV Diastolic Diameter PLAX 4.5 cm 4.2 - 5.9 / 3.9 - 5.3 cm LV Systolic Diameter PLAX 2.9 cm IVS Diastolic Thickness 0.9 cm 0.6 - 1.0 / 0.6 - 0.9 cm LVPW Diastolic Thickness 0.9 cm 0.6 - 1.0 / 0.6 - 0.9 cm LV Relative Wall Thickness 0.4 RV Internal Dim ED PLAX 2.6 cm LA Systolic Diameter LX 2.7 cm 3.0 - 4.0 / 2.7 - 3.8 cm LV Diastolic Volume MOD BP 65.4 cm??? 67 - 155 / 56 - 104 cm??? LV Systolic Volume MOD BP 23.4 cm??? 22 - 58 / 19 - 49 cm??? LV Ejection Fraction MOD BP 64.2 % >= 55 % LV Cardiac Index MOD BP 2074.9 cm???/min???m??? LV Diastolic Volume MOD 4C 64.6 cm??? LV Systolic Volume MOD 4C 19.8 cm??? LV Ejection Fraction MOD 4C 69.4 % LV Cardiac Index MOD 4C 2215.0 cm???/min???m??? LV Diastolic Length 4C 6.8 cm LV Systolic Length 4C 5.2 cm LV Diastolic Volume MOD 2C 60.9 cm??? LV Systolic Volume MOD 2C 25.5 cm??? LV Ejection Fraction MOD 2C 58.2 % LV Cardiac Index MOD 2C 1749.7 cm???/min???m??? LV Diastolic Length 2C 6.2 cm LV Systolic Length 2C 5.8 cm LA Volume 55.8 cm??? 18 - 58 / 22 - 52 cm??? LA Volume Index 33.2 cm???/m??? 16 - 28 cm???/m??? M-MODE Aortic Root Diameter MM 2.8 cm AV Cusp Separation MM 1.8 cm DOPPLER AV Peak Velocity 149.9 cm/s AV Peak Gradient 9.0 mmHg MV Area PHT 2.3 cm??? Mitral E Point Velocity 66.8 cm/s Mitral A Point Velocity 111.9 cm/s Mitral E to A Ratio 0.6 MV Deceleration Time 335.9 ms TR Peak Velocity 256.8 cm/s TR Peak Gradient 26.4 mmHg Right Ventricular Systolic Press 30.4 mmHg FINDINGS Left Ventricle Left ventricular ejection fraction is estimated at 55-60 %. Left ventricular cavity size normal. Left ventricular wall thickness normal. Right Ventricle Normal right ventricular size and function. Mild pulmonary hypertension. Right Atrium Normal right atrial size. No right atrial thrombus or mass seen. Left Atrium Normal left atrial size. No left atrial thrombus or mass present. Mitral Valve Structurally normal mitral valve. Trace mitral regurgitation. No evidence for mitral valve prolapse. No mitral stenosis. Aortic Valve Trileaflet aortic valve. No aortic stenosis. Trace aortic regurgitation. Tricuspid Valve Structurally normal tricuspid valve. Mild tricuspid regurgitation. Pulmonic Valve Structurally normal pulmonic valve. Trace pulmonic regurgitation. Pericardium No pericardial effusion. Aorta Normal size aortic root and proximal ascending aorta. CONCLUSIONS Left ventricular ejection fraction 55-60% RVSP 30 Trace mitral regurgitation Mild tricuspid regurgitation No pericardial effusion Previewed by: Dr. Josef Benitez DO (Electronically Signed) Final Date: 03 March 2024 14:06
[2024-03-03 15:28] VITALS: BP 130/75; PULSE 75; TEMP 98.6
--- NOTE | 2024-03-03 15:56 | P.DS ---
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 She denies headache, vision changes, nausea, vomiting, abdominal pain, changes in bowel habits, fevers, chills. 2 days ago she had the worst episode of she had, she also noted associated chest pain radiating to the left upper extremity, currently chest pain-free Reviewed ER note from 08/2023: Presented for extreme dizziness and weakness, CT and CTA of the head done and showed no acute abnormalities, at that time patient related it was her causing the symptoms, she was discharged home on meclizine. Another ER visit 10/2021 initially with lightheadedness, likely related 11/2017x2 with dizziness. Goal at discharge home to follow-up with neurology and ENT. Pertinent positives and negatives as discussed in HPI, a complete review of systems was performed and all other systems are negative. ER course: Afebrile, initial blood pressure elevated 192/86, came down to 134/92, satting well on room air, normal heart rate Unremarkable CBC, CMP with normal sodium, potassium, creatinine 1.07, normal AST and ALT, CT head showed no acute intracranial, stable appearance of ventricles and lower extremity catheter, chronic lacunar EKG: Negative ischemic changes, age-related atrophy EKG showed sinus arrhythmia, no ST elevation, , QTc 409. Troponin negative, TTE unremarkable Patient is admitted under observation status for further evaluation of severe vertigo, neurology consulted. Discussed, can be discharged on meclizine and ENT follow-up, patient has an ENT appointment next week. Her folate was borderline, started on supplement. Patient seen and examined at bedside. States that she feels better and the episode is resolved, patient's at bedside. Vital signs reviewed General: nontoxic, no distress, appears at stated age Derm: warm, dry Head: atraumatic, normocephalic, symmetric Eyes: EOMI, no lid lag, anicteric sclera, pupils equal round reactive to light ENT: Nose and ears atraumatic Neck: No thyromegaly, supple Mouth: no lip lesion, mucus membranes moist Cardiovascular: S1S2 reg, no murmur, no edema Lungs: clear to auscultation bilateral, no rhonchi, no rales, no wheeze, no accessory muscle use Abdominal: soft, nontender to palpation, no guarding, no appreciable organomegaly Ext: no gross muscle atrophy, muscle strength muscle strength 5 out of 5 in all 4 extremities, no contractures Neuro: CN II-XII grossly intact, normal finger-nose, no focal symptoms Psych: Alert, oriented, appropriate affect A total of 40 minutes of time were spent preparing this complex discharge summary. Patient was discharged on 02/28/2024. Patient Condition at Discharge: Fair Plan - Discharge Summary Discharge Rx Participant: No New Discharge Prescriptions: New Folic Acid 1 mg PO DAILY #30 tab Meclizine [Antivert] 25 mg PO BID #28 tab Continue Rosuvastatin [Crestor] 10 mg PO HS metFORMIN HCL [Glucophage] 500 mg PO DAILY cloNIDine HCL [Catapres] 0.1 mg PO DAILY PRN PRN Reason: BP HIGHER THAN 160/100 Pioglitazone [Actos] 30 mg PO DAILY lisinopriL [Zestril] 40 mg PO DAILY Levothyroxine Sodium [Tirosint] 100 mcg PO DAILY amLODIPine [Norvasc] 5 mg PO DAILY Glimepiride [Amaryl] 0.5 mg PO DAILY Omeprazole [PriLOSEC] 40 mg PO DAILY Discharge Medication List Rosuvastatin [Crestor] 10 mg PO HS 11/16/17 [History] metFORMIN HCL [Glucophage] 500 mg PO DAILY 11/22/17 [History] Pioglitazone [Actos] 30 mg PO DAILY 11/06/21 [History] cloNIDine HCL [Catapres] 0.1 mg PO DAILY PRN 11/06/21 [History] Levothyroxine Sodium [Tirosint] 100 mcg PO DAILY 08/11/23 [History] lisinopriL [Zestril] 40 mg PO DAILY 08/11/23 [History] Glimepiride [Amaryl] 0.5 mg PO DAILY 03/02/24 [History] Omeprazole [PriLOSEC] 40 mg PO DAILY 03/02/24 [History] amLODIPine [Norvasc] 5 mg PO DAILY 03/02/24 [History] Folic Acid 1 mg PO DAILY #30 tab 03/03/24 [Rx] Meclizine [Antivert] 25 mg PO BID #28 tab 03/03/24 [Rx] Follow up Appointment(s)/Referral(s): Rosalina Mcclellan MD [Primary Care Provider] - 1-2 days Patient Instructions/Handouts: Vertigo (DC) Activity/Diet/Wound Care/Special Instructions: Please, follow up with your ENT, please, make sure you mention your symptoms. Follow up with PCP Discharge Disposition: HOME SELF-CARE
--- NOTE | 2024-03-04 10:07 | P.CNNES ---
History of Present Illness Consult date: 03/03/24 Requesting physician: Oracio Meyers Reason for Consult: Severe vertigo History of Present Illness: Patient is a 83-year-old female with history of NPH, status post [employer] shunting 20 years ago, chronic hearing loss, recurrent vertigo, diabetes, hypertension, came to the hospital yesterday at 12:27 PM for another episode of vertigo. Patient states that 2 nights ago she was getting ready to go to the bed, was walking around her bed when she developed vertigo. Her whole body was as if it was moving. She just went to bed and slept and next day she was fine. 2 days later, which is yesterday she had another one. This time she was around her house, doing nothing special and the vertigo started. She was getting terrible dizziness, could not navigate. Did not have any nausea or vomiting. Usually with her typical vertigo she vomits and gets diarrhea but this time it was not happening, therefore she got concerned and came to the hospital. She denies headache with any of these episodes. No trauma. Patient states she has history of vertigo off and on for 20 years. It is very infrequent, occurs every other year, and lasts for about couple hours. With her vertigo, she gets nausea vomiting and diarrhea and then when everything is out of gut, the vertigo resolves. The last time it happened was and she was in [place] about a month ago. She did vomit and felt sick. She was taken to the hospital and underwent testing and was released. Patient was diagnosed with NPH 20 years ago, as she was developed acute onset of difficulty with walking, and dizziness. At first stroke was suspected. However MRI of the brain revealed NPH. She underwent placement of medical paratonia shunt. However 10 years later, there was some problem with the shunt and required revision. She has been stable since then. She states her thyroid is out". She has no taste, no sense of smell and has near hearing loss. 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 Patient never had any lumbar puncture performed in the past. Patient uses see Dr. Simms, ENT specialist. Vital signs on arrival blood pressure 183/86, which came down to 134/92, pulse 88 temperature 98.1. Subsequent blood pressures have been normal. Blood test shows normal CBC, electrolytes, BUN 24 creatinine 1.07. Hemoglobin A1c 8.4. Hepatic panel is normal troponin negative. Folate 9.9, TSH 1.63. EKG showed sinus rhythm. CT head showed no acute intracranial process. Follow-up MRI can be performed as indicated. Stable appearance of ventricles and the right shunt catheter. Chronic appearing periventricular white matter ischemic type changes. I personally reviewed CT head, agree with the findings. Visualized paranasal sinuses are clear. External auditory canals are clear. Home medications include Crestor 10 mg, metformin, clonidine, Actos, lisinopril, levothyroxine, amlodipine, Amaryl and Prilosec. Patient takes aspirin 81 mg daily, but has been on hold since last 2 days because she is undergoing some area reconstructive surgery on 03/07/2024. Patient had an ER visit in August 2023 for extreme dizziness and weakness. CT and CTA of head and neck were completely normal. She was discharged on meclizine. Another ER visit October 2021 initially with lightheadedness, likely related to vertigo. Recommended to follow up with neurology and ENT. Review of Systems All pertinent positive and negative review of systems mentioned in the HPI. O therwise unremarkable. Past Medical History Past Medical History: CVA/TIA, Diabetes Mellitus, Hyperlipidemia, Hypertension Additional Past Medical History / Comment(s): subdural hematoma History of Any Multi-Drug Resistant Organisms: None Reported Past Surgical History: Appendectomy, Heart Catheterization, Hernia Repair, Hysterectomy Additional Past Surgical History / Comment(s): 2 shunts in the brain Past Anesthesia/Blood Transfusion Reactions: No Reported Reaction Past Psychological History: No Psychological Hx Reported Smoking Status: Never smoker Past Alcohol Use History: None Reported Past Drug Use History: None Reported Medications and Allergies Home Medications Medication Instructions Recorded Confirmed Type Rosuvastatin [Crestor] 10 mg PO HS 11/16/17 03/02/24 History metFORMIN HCL [Glucophage] 500 mg PO DAILY 11/22/17 03/02/24 History Pioglitazone [Actos] 30 mg PO DAILY 11/06/21 03/02/24 History cloNIDine HCL [Catapres] 0.1 mg PO DAILY PRN 11/06/21 03/02/24 History Levothyroxine Sodium [Tirosint] 100 mcg PO DAILY 08/11/23 03/02/24 History lisinopriL [Zestril] 40 mg PO DAILY 08/11/23 03/02/24 History Glimepiride [Amaryl] 0.5 mg PO DAILY 03/02/24 03/02/24 History Omeprazole [PriLOSEC] 40 mg PO DAILY 03/02/24 03/02/24 History amLODIPine [Norvasc] 5 mg PO DAILY 03/02/24 03/02/24 History Folic Acid 1 mg PO DAILY #30 tab 03/03/24 Rx Meclizine [Antivert] 25 mg PO BID #28 tab 03/03/24 Rx Allergies Allergy/AdvReac Type Severity Reaction Status Date / Time iodine Allergy Rash/Hives Verified 03/02/24 14:05 Sulfa (Sulfonamide Allergy Rash/Hives Verified 03/02/24 14:05 Antibiotics) Physical Examination - Vital Signs Vital Signs: Vital Signs Temp Pulse Pulse Resp BP BP Pulse Ox 03/03/24 07:00 98.2 F 70 17 147/72 97 03/03/24 02:03 74 16 03/03/24 01:48 98.3 F 74 16 133/63 95 03/02/24 21:57 97.9 F 74 18 138/67 96 03/02/24 21:00 84 18 138/60 97 03/02/24 19:00 70 20 140/69 97 03/02/24 17:47 97.9 F 74 18 138/67 96 03/02/24 16:00 97.6 F 66 18 144/62 97 03/02/24 15:00 97.7 F 67 17 140/74 98 03/02/24 14:49 97.7 F 62 18 140/72 97 03/02/24 13:43 97.8 F 80 15 134/92 95 03/02/24 12:28 98.1 F 88 20 183/86 97 Intake and Output 03/02/24 03/03/24 03/03/24 22:59 06:59 14:59 Intake Total 118 Balance 118 Intake: Oral 118 Other: Voiding Method External Catheter # Voids 1 3 Weight 63.503 kg Patient is an elderly female, very pleasant, in no acute distress. Patient is alert awake oriented to time place and person. Speech and language functions are normal. Patient can name and repeat very well. No aphasia or dysarthria. Attention, concentration and fund of knowledge is adequate. On cranial nerve examination, pupils are equal, round and reacting to light, visual rob[place] are full on confrontation, with no neglect on double simultaneous stimulation. Extraocular muscles are intact with no nystagmus. Face is sy mmetric, tongue protrudes to the midline. Palatal elevation and sensation normal, hearing is severely decreased and shoulder shrug normal, facial sensation normal. On muscle strength testing, there is no pronator drift and the strength is normal in arms and legs distally and proximally. Deep tendon reflexes are symmetric 2+ all over and plantars downgoing bilaterally. Sensory to touch is equal with no neglect on double simultaneous stimulation. Cerebellar function showed no ataxia for [id number] testing. No dysdiadochokinesia. No ataxia for [id number] testing on either side. Tone and bulk of muscles normal. Gait deferred.. On general examination, there is no carotid bruit or murmur, S1-S2 audible. Chest is clear on consultation. Abdomen is soft nontender. No organomegaly, bowel sounds present. Peripheral pulses are present. No peripheral edema. Results - Laboratory Findings CBC and BMP: 03/02/24 12:50 03/02/24 12:50 Abnormal Lab Findings: Abnormal Labs 03/02/24 03/02/24 12:50 15:03 Chloride 108 H BUN 24 H Creatinine 1.07 H Glucose 131 H Hemoglobin A1c 8.4 H Assessment and Plan Assessment: * Recurrent episodes of vertigo off and on for last 20 years, came with another episode of vertigo, rule out Mnire's disease. * Chronic hearing loss * History of NPH, status post shunt placement 2 * Hypertension * Hyperlipidemia * Diabetes * Hypothyroidism Plan: * CT head revealed no acute intracranial process. Stable appearance of the ventricles and the right shunt catheter. Chronic appearing periventricular white matter ischemic Change. * 2-D echo revealed normal LV EF 55-60%. Normal left and right atrial size. No thrombus. Mild TR. No other valvular abnormalities. * Patient had a normal CTA of head and neck on 08/11/2023. No need to repeat. * B12 236, folate 9.9, TSH 1.63. Suggest B12 replacement. Patient started on folic acid 1 mg daily. * Patient recommended to start vitamin B12 1000 mg sublingually daily. * Patient takes aspirin 81 mg daily, but on hold for some procedure coming up on 03/07/2024. She was recommended to resume aspirin 81 mg daily thereafter. * Hemoglobin A1c 8.4. Recommend optimize control of diabetes to target A1c < 7.0 * Lipid panel with cholesterol 176, LDL 90, HDL 65 and triglycerides 99. Continue Crestor 10 mg daily. (In hospital on Lipitor 20 mg). * Agree with starting meclizine. * Recommend patient follow up with ENT outpatient, to rule out Mnire's disease. She may benefit from low-dose HCTZ. * Optimize control of blood pressure as per IM. * Neurologically clear for discharge. Thank you for the consult.
== END 2024-03-03 16:29 | disposition home or self-care (01) ==
LOC: EC 12:27 → 6NMEDSUR 13:44
PROVIDERS: ADMIT Student in an Organized Health Care Education/Training Program; ATTEND Student in an Organized Health Care Education/Training Program
DX: R42 Dizziness and giddiness (principal); R07.9 Chest pain, unspecified; E03.9 Hypothyroidism, unspecified; E11.9 Type 2 diabetes mellitus without complications; E78.5 Hyperlipidemia, unspecified; I10 Essential (primary) hypertension; G91.2 (Idiopathic) normal pressure hydrocephalus; H91.93 Unspecified hearing loss, bilateral; Z79.82 Long term (current) use of aspirin; Z79.84 Long term (current) use of oral hypoglycemic drugs; Z86.73 Personal history of transient ischemic attack (TIA), and cerebral infarction without residual deficits; Z88.2 Allergy status to sulfonamides; Z79.899 Other long term (current) drug therapy; Z79.890 Hormone replacement therapy; Z66 Do not resuscitate; Z98.2 Presence of cerebrospinal fluid drainage device
CPT/HCPCS: 96361; 96374; 96375; 99285; 36415; 93005; 93306; 80053; 84443; 82607; 82746; 84484 ×2; 85025; 83036; 70450; G0378 ×2; J2765; J3360